=== PATIENT | female | born 1940 | race Caucasian/White ===

== ENCOUNTER 2020-05-16 11:01 | Outpatient (REF) | payer OTHER, SELFPAY ==
--- NOTE | 2020-05-16 11:13 | XR_ITS ---
EXAMINATION: BILATERAL KNEE X-RAY CLINICAL INFORMATION: Bilateral knee pain COMPARISON: None TECHNIQUE: 4 views of each kidney FINDINGS: Right: Bone alignment is normal. No fracture or dislocation is seen. The femoral tibial joints are normal. There is mild arthritis at the patellofemoral joint with joint space narrowing and osteophyte formation. There is no significant joint effusion. There is atherosclerotic disease. Left: Bone alignment is normal. No fracture or dislocation is seen. There is arthritis at the patellofemoral and medial femoral tibial joints with joint space narrowing and osteophyte formation. There is no significant joint effusion. There is evidence of atherosclerotic disease. XR/XR knee LT 4V IMPRESSION: Bilateral arthritis.
--- NOTE | 2020-05-16 11:14 | XR_ITS ---
EXAMINATION: BILATERAL KNEE X-RAY CLINICAL INFORMATION: Bilateral knee pain COMPARISON: None TECHNIQUE: 4 views of each kidney FINDINGS: Right: Bone alignment is normal. No fracture or dislocation is seen. The femoral tibial joints are normal. There is mild arthritis at the patellofemoral joint with joint space narrowing and osteophyte formation. There is no significant joint effusion. There is atherosclerotic disease. Left: Bone alignment is normal. No fracture or dislocation is seen. There is arthritis at the patellofemoral and medial femoral tibial joints with joint space narrowing and osteophyte formation. There is no significant joint effusion. There is evidence of atherosclerotic disease. XR/XR knee RT 4V IMPRESSION: Bilateral arthritis.
== END 2020-05-16 11:02 | disposition home or self-care (01) ==
LOC: HO.XRAY 11:01
PROVIDERS: PCP Internal Medicine; Visit Provider Internal Medicine
DX: M25.562 Pain in left knee (principal); M25.561 Pain in right knee
CPT/HCPCS: 73564

== ENCOUNTER 2021-03-03 08:28 | Outpatient (REF) | payer OTHER, SELFPAY ==
[2021-03-03 09:05] LABS: MANUAL DIFF FLAG NO
[2021-03-03 09:13] LABS: Basophils Percent Auto 0.6 % (0-2); Eosinophils Absolute Auto 0.2 X10*3/uL (0.0-0.4); Eosinophils Percent Auto 2.7 % (0-4); Hematocrit 47.1 % (37-47); Imm Gran Abs Auto 0.02 X10*3/uL (0.00-0.03); Imm Gran Pct Auto 0.3 % (0.0-0.4); Lymphocytes Absolute Auto 1.9 X10*3/uL (1.2-4.9); Mean Corpuscular HGB Conc 31.8 g/dl (31.0-35.0); Mean Corpuscular Hemoglobin 29.8 pg (27.0-33.0); Mean Corpuscular Volume 93.5 fL (80-98); Mean Platelet Volume 12.3 fL (9.4-12.3); Monocytes Absolute Auto 0.7 X10*3/uL (0.1-1.2); Monocytes Percent Auto 10.4 % (2-11); Neutrophils Absolute Auto 3.8 X10*3/uL (2.0-8.3); Platelet Count 157 X10*3/uL (160-400); Red Blood Count 5.04 X10*6/uL (4.20-5.50); Red Cell Distribution Width 15.9 % (11.0-16.0); White Blood Count 6.6 X10*3/uL (4.8-10.8)
[2021-03-03 10:22] LABS: Free T4 (Free Thyroxine) 1.07 ng/dL (0.71-1.85); Thyroid Stimulating Hormone 1.05 uIU/mL (0.32-4.0)
[2021-03-03 10:26] LABS: Alanine Aminotransferase 27 U/L (0-31); Albumin Level 4.1 g/dL (3.5-5.0); Alkaline Phosphatase 60 U/L (39-117); Anion Gap 11 (12-20); Aspartate Amino Transferase 30 U/L (5-31); Bilirubin Total 0.5 mg/dL (0.0-1.0); Blood Urea Nitrogen 22 mg/dL (9-16); Calcium 9.6 mg/dL (8.4-10.2); Carbon Dioxide 29 mmol/L (22-29); Chloride 107 mmol/L (96-108); Cholesterol 179 mg/dL; Estimated Glomerular Filt Rate 57; Glucose Fasting 100 mg/dL (60-99); HDL Cholesterol 62 mg/dL; LDL Cholesterol Calculated 102 mg/dl; Potassium 4.5 mmol/L (3.3-5.1); Sodium 142 mmol/L (135-145); Total Protein 6.5 g/dL (6.5-8.0); Triglycerides 77 mg/dL
== END 2021-03-03 08:29 | disposition home or self-care (01) ==
LOC: HO.LAB 08:28
PROVIDERS: PCP Internal Medicine; Visit Provider Internal Medicine
DX: R53.83 Other fatigue (principal); E78.5 Hyperlipidemia, unspecified
CPT/HCPCS: 36415; 80053; 80061; 84439; 84443; 85025

== ENCOUNTER 2022-01-21 08:23 | Outpatient (REF) | payer OTHER, SELFPAY ==
[2022-01-21 08:48] LABS: COVID-19 Test Positive (Negative); IDNOW Serial# 16C4AD1C
== END 2022-01-21 08:24 | disposition home or self-care (01) ==
LOC: HO.LAB 08:23
PROVIDERS: Visit Provider Internal Medicine
DX: Z20.822 Contact with and (suspected) exposure to COVID-19 (principal)
CPT/HCPCS: 87635; C9803

== ENCOUNTER 2022-02-23 08:13 | Outpatient (REF) | payer OTHER, SELFPAY ==
[2022-02-23 08:30] LABS: MANUAL DIFF FLAG NO
[2022-02-23 08:45] LABS: Basophils Absolute Auto 0.1 X10*3/uL (0.0-0.2); Basophils Percent Auto 1.2 % (0-2); Eosinophils Absolute Auto 0.1 X10*3/uL (0.0-0.4); Eosinophils Percent Auto 2.4 % (0-4); Hematocrit 47.1 % (37.0-47.0); Hemoglobin 15.2 g/dl (12.0-16.0); Imm Gran Abs Auto 0.02 X10*3/uL (0.00-0.03); Imm Gran Pct Auto 0.3 % (0.0-0.4); Lymphocytes Absolute Auto 1.7 X10*3/uL (1.2-4.9); Lymphocytes Percent Auto 29.2 % (20-40); Mean Corpuscular HGB Conc 32.3 g/dl (31.0-35.0); Mean Corpuscular Hemoglobin 29.5 pg (27.0-33.0); Mean Corpuscular Volume 91.5 fL (80.0-98.0); Mean Platelet Volume 11.5 fL (9.4-12.3); Monocytes Absolute Auto 0.6 X10*3/uL (0.1-1.2); Monocytes Percent Auto 9.7 % (2-11); Neutrophils Absolute Auto 3.3 x10*3/uL (2.0-8.3); Neutrophils Percent Auto 57.2 % (45-73); Platelet Count 172 X10*3/uL (160-400); Red Blood Count 5.15 X10*6/uL (4.20-5.50); Red Cell Distribution Width 16.1 % (11.0-16.0); White Blood Count 5.9 X10*3/uL (4.8-10.8)
[2022-02-23 09:15] LABS: Alanine Aminotransferase 29 U/L (0-31); Albumin Level 3.9 g/dL (3.5-5.0); Alkaline Phosphatase 59 U/L (39-117); Anion Gap 14 (12-20); Aspartate Amino Transferase 32 U/L (5-31); Bilirubin Total 0.6 mg/dL (0.0-1.0); Blood Urea Nitrogen 28 mg/dL (9-16); Calcium 9.4 mg/dL (8.4-10.2); Carbon Dioxide 26 mmol/L (22-29); Chloride 107 mmol/L (96-108); Cholesterol 191 mg/dL; Estimated Glomerular Filt Rate 52; Glucose Random 103 mg/dL (60-115); HDL Cholesterol 52 mg/dL; LDL Cholesterol Calculated 123 mg/dl; Potassium 4.5 mmol/L (3.3-5.1); Sodium 142 mmol/L (135-145); Total Protein 6.7 g/dL (6.5-8.0); Triglycerides 84 mg/dL
[2022-02-23 09:39] LABS: Free T4 (Free Thyroxine) 1.09 ng/dL (0.71-1.85); Thyroid Stimulating Hormone 1.01 uIU/mL (0.32-4.0)
== END 2022-02-23 08:14 | disposition home or self-care (01) ==
LOC: HO.LAB 08:13
PROVIDERS: PCP Internal Medicine; Visit Provider Internal Medicine
DX: R53.83 Other fatigue (principal); E78.00 Pure hypercholesterolemia, unspecified
CPT/HCPCS: 36415; 80053; 80061; 84439; 84443; 85025

== ENCOUNTER 2022-05-27 11:39 | Outpatient (REF) | payer OTHER, SELFPAY ==
[2022-05-27 12:36] LABS: COVID-19 Test Negative (Negative); IDNOW Serial# 16C4AD1C
== END 2022-05-27 11:40 | disposition home or self-care (01) ==
LOC: HO.LAB 11:39
PROVIDERS: Visit Provider Internal Medicine
DX: Z20.822 Contact with and (suspected) exposure to COVID-19 (principal)
CPT/HCPCS: 87635; C9803

== ENCOUNTER 2022-11-05 14:48 | Outpatient (REF) | payer OTHER, SELFPAY ==
--- NOTE | ~2022-11-05 | XR_ITS ---
EXAMINATION: XR KNEE AP STANDING CLINICAL INFORMATION: Bilateral knee pain. COMPARISON: Previous x-ray most recent May 2020 TECHNIQUE: AP and lateral bilateral standing view of the knees was obtained. FINDINGS: Right: Bone alignment is normal. No fracture or dislocation. Tricompartment arthritis. Small joint effusion. Atherosclerotic disease. The arthritis appears increased from May 2020. Left: Bone alignment is normal. No fracture or dislocation. Tricompartment arthritis. Small joint effusion. Atherosclerotic disease. Arthritis appears increased from 2019 exam.. XR/XR knee standing BI IMPRESSION: Bilateral arthritis increased from 2019 exam.
== END 2022-11-05 14:49 | disposition home or self-care (01) ==
LOC: HO.HMGCX 14:48
PROVIDERS: PCP Internal Medicine; Visit Provider Internal Medicine
DX: M25.562 Pain in left knee (principal); M25.561 Pain in right knee
CPT/HCPCS: 73565

== ENCOUNTER 2023-01-28 09:59 | Outpatient (AMB) | payer OTHER, SELFPAY ==
--- NOTE | 2023-01-28 10:03 | A.OFFVIS_ITS ---
Intake Intake Visit Reasons: BP-B/L knee pain/Right knee worse Intake Note: Leyda is a 82 year old female who presents today as a new patient with complaints of bilateral knee pain. Right worse than left. She also complains of right ankle. Hx of cortisone injection at the beginning of November 2022 with PCP. The patient states that she got minimal relief from the injection. She has taken Tylenol which gives her good relief. She is not able to tolerate anti- inflammatory medicines because of renal problems. She has taken CBD supplements as well. The patient denies any locking or giving way. She would like to hold off on surgery for as long as possible. Allergies NSAIDS (Non-Steroidal Anti-Inflamma Adverse Reaction (Verified 01/28/23 10:08) Kindey Function Elevated Medication List - Last Reconciled 01/28/23 by Arnulfo Anderson MD acetaminophen ER (Tylenol Arthritis Pain) 650 mg PO Q12H [CBD Tincture sublingual] lorazepam 0.5 mg PO TID PRN simvastatin 40 mg PO BEDTIME PFSH Surgical History (Updated 01/28/23 @ 10:09 by Zora Melendez CMA) H/O mastectomy Social History (Updated 01/28/23 @ 10:10 by Zora Melendez CMA) Current occupational status: employed Current occupation: [employer] Physical Exam Const Other: Well-nourished well-developed very friendly female awake alert and oriented x3 in no acute distress Extrem Other: Bilateral lower extremity examination shows good capillary refill, no skin lesions noted, normal sensation light touch Right knee examination shows a mild effusion, palpable crepitus with range of motion, pain with range of motion, range of motion from -5 degrees to 115 degrees, no instability Results Reviewed Results Reviewed: X-rays of the patient's right knee taken on 11/05/2022 show severe joint space narrowing with grade 4 [id number] arthritis, subchondral sclerosis, no acute Assessment & Plan Assessment & Plan (1) Arthritis of right knee: Code(s): M17.11 - Unilateral primary osteoarthritis, right knee Plan: Ms. Ignacio presents with progressively worsening bilateral knee pains, right greater than left, due to degenerative joint disease. I had a lengthy discussion with the patient regarding the treatment options. She wishes to hold off on surgery for as long as possible. I agree with this plan. She has not gotten good relief from cortisone injections. Thus, I will see whether not her insurance company will cover a viscosupplementation injection. I will see her back once the injection is available. Feel free to call me at any time should questions regarding her orthopedic management arise. Thank you very much for asking me to see this very friendly patient. Well-nourished well-developed very friendly female awake alert and oriented x3 in no acute distress Coding Level of Care Code New Pt Level 2 (80370) Diagnoses Arthritis of right knee M17.11
== END 2023-01-28 10:38 | disposition home or self-care (01) ==
PROVIDERS: PCP Internal Medicine; Visit Provider Orthopaedic Surgery
DX: M17.11 Unilateral primary osteoarthritis, right knee (principal)
CPT/HCPCS: 99202

== ENCOUNTER → 2023-01-28 09:59 | Outpatient (BNVA) | payer OTHER, SELFPAY | PROVIDERS: PCP Internal Medicine; Visit Provider Orthopaedic Surgery ==

== ENCOUNTER 2023-03-06 11:05 | Outpatient (AMB) | payer OTHER, SELFPAY ==
--- NOTE | 2023-03-06 11:10 | MHC.OFFVIS ---
Intake Intake Visit Reasons: OV- B/L Knee req INJ Intake Note: Pt presents to the office today for an office visit for b/l knee pain. Pt states her right knee is the worst but her left knee is painful occasionally as well.Pt states she has worse pain at night time. She states her knee is more painful when extended. Pt states she believes the arthritis strength tylenol is helpful.Pt denies any previous injections or surgeries. The patient wishes to hold off on surgery if at all possible. Allergies NSAIDS (Non-Steroidal Anti-Inflamma Adverse Reaction (Verified 03/06/23 11:11) Kindey Function Elevated Medication List - Last Reconciled 03/06/23 by Arnulfo Anderson MD acetaminophen ER (Tylenol Arthritis Pain) 650 mg PO Q12H [CBD Tincture sublingual] lorazepam 0.5 mg PO TID PRN simvastatin 40 mg PO BEDTIME PFSH Surgical History H/O mastectomy Family History (Updated 03/06/23 @ 11:14 by Renetta Chawla MA) Mother Ovarian cancer Father Heart problem Paternal Grandmother Diabetes Social History (Updated 03/06/23 @ 11:12 by Renetta Chawla MA) Household Members: None Housing: House Alcohol intake: never Patient Tobacco Use Status: Current everyday Tobacco user Cigarettes Per Day: 8 Current occupational status: employed Current occupation: [employer] Physical Exam Const Other: Well-nourished well-developed very friendly female awake alert and oriented x3 in no acute distress Extrem Other: Bilateral lower extremity examination shows good capillary refill, no skin lesions noted, normal sensation light touch Right knee examination shows a mild effusion, palpable crepitus with range of motion, pain with range of motion, no instability Office Procedures Joint Injection/Drain Joint Injection/Drain Primary Site: right knee Prep: site was prepped using aseptic technique Injected: 40 mg of, Kenalog and 1% plain lidocaine Procedure: The patient tolerated the procedure well Coding 11898 - Large joint Procedure code (CPT) selection complete Results Reviewed Results Reviewed: 03/06/23 11:48 Lidocaine HCl 2 % MPF [Xylocaine 2 % MPF] 5 ml .ROUTE .STK-MED ONE Triamcinolone Acetonide [Kenalog-40] 40 mg .ROUTE .STK-MED ONE X-rays of the patient's right knee show joint space narrowing, subchondral sclerosis, no acute bony abnormalities Assessment & Plan Assessment & Plan (1) Arthritis of right knee: Code(s): M17.11 - Unilateral primary osteoarthritis, right knee Plan: Ms. Ignacio presents with progressively worsening bilateral knee pains, right greater than left, due to degenerative joint disease. I had a lengthy discussion with the patient regarding the treatment options. The risks and benefits of a right knee cortisone injection were discussed at length with the patient. The patient wished to proceed. She tolerated the injection well. She will continue with her home exercise program. She will follow up with me on an as-needed basis should her symptoms not plateau at an unacceptable level over the next few months. Feel free to call me at any time should questions regarding her orthopedic management arise. I spent 22 minutes in reviewing the patient's records and imaging studies, seeing the patient and documenting in the medical record. Orders: Orders AMB Joint Injection/Aspiration Today M17.11 - Unilateral primary osteoarthritis, right knee Coding Level of Care Code Est Pt Level 2 (11131) Diagnoses Arthritis of right knee M17.11 CPT Codes Coding - 88916 Large joint: 52984 - Large joint ([id number])
== END 2023-03-06 12:16 | disposition home or self-care (01) ==
PROVIDERS: PCP Internal Medicine; Visit Provider Orthopaedic Surgery
DX: M17.11 Unilateral primary osteoarthritis, right knee (principal)
CPT/HCPCS: 20610; 99213

== ENCOUNTER → 2023-03-06 11:05 | Outpatient (BNVA) | payer OTHER, SELFPAY | PROVIDERS: PCP Internal Medicine; Visit Provider Orthopaedic Surgery | DX: M17.11 Unilateral primary osteoarthritis, right knee (principal) | CPT/HCPCS: 20610; J3301 ==

== ENCOUNTER 2023-06-05 12:55 | Outpatient (AMB) | payer OTHER, SELFPAY ==
--- NOTE | 2023-06-05 13:03 | A.OFFVIS_ITS ---
Intake Intake Visit Reasons: Right knee pain Intake Note: Ms. Ignacio presents with complaints of progressively worsening right knee pain. The patient describes her pain as sharp in nature. She did have a cortisone injection given into her right knee earlier this year. She got fairly good relief from that injection. She has taken Tylenol which gives her only mild relief. She wishes to hold off on surgery for as long as possible. Allergies NSAIDS (Non-Steroidal Anti-Inflamma Adverse Reaction (Verified 06/05/23 13:03) Kindey Function Elevated Medication List - Last Reconciled 06/05/23 by Arnulfo Anderson MD acetaminophen ER (Tylenol Arthritis Pain) 650 mg PO Q12H [CBD Tincture sublingual] lorazepam 0.5 mg PO TID PRN simvastatin 40 mg PO BEDTIME PFSH Surgical History H/O mastectomy Family History Mother Ovarian cancer Father Heart problem Paternal Grandmother Diabetes Social History (Updated 03/06/23 @ 11:12 by Renetta Chawla MA) Household Members: None Housing: House Alcohol intake: never Patient Tobacco Use Status: Current everyday Tobacco user Cigarettes Per Day: 8 Current occupational status: employed Current occupation: [employer] Physical Exam Const Other: Well-nourished well-developed very friendly female awake alert and oriented x3 in no acute distress Extrem Other: Bilateral lower extremity examination shows good capillary refill, no skin lesions noted, normal sensation light touch Right knee examination shows a minimal effusion, palpable crepitus with range of motion, pain with range of motion, range of motion from -3 degrees to 115 degrees Office Procedures Joint Injection/Drain Joint Injection/Drain Primary Site: right knee Prep: site was prepped using aseptic technique Injected: 40 mg of, DepoMedrol and 1% plain lidocaine Procedure: The patient tolerated the procedure well Coding 41647 - Large joint Procedure code (CPT) selection complete Results Reviewed Results Reviewed: X-rays of the patient's right knee show joint space narrowing, subchondral scle rosis, no acute bony abnormalities Assessment & Plan Assessment & Plan (1) Arthritis of right knee: Code(s): M17.11 - Unilateral primary osteoarthritis, right knee (2) Right knee pain: Code(s): M25.561 - Pain in right knee Plan Ms. Ignacio presents with progressively worsening right knee pain due to degenerative joint disease. I had a lengthy discussion with the patient regarding the treatment options. She wishes to hold off on surgery for as long as possible. I agree with this plan. The risks and benefits of a right knee cortisone injection were discussed at length with the patient. The patient wished to proceed. She tolerated the injection well. She will continue with her home exercise program. She will follow up with me on an as-needed basis should her symptoms not plateau at an unacceptable level over the next few months. Feel free to call me at any time should questions regarding her orthopedic management arise. I spent 22 minutes in reviewing the patient's records and imaging studies, seeing the patient and documenting in the medical record. Orders: Orders AMB Joint Injection/Aspiration 06/05/23 M17.11 - Unilateral primary osteoarthritis, right knee Coding Level of Care Code Est Pt Level 2 (45707) Diagnoses Arthritis of right knee M17.11 Right knee pain M25.561 CPT Codes Coding - 55658 Large joint: 56732 - Large joint ([id number])
== END 2023-06-05 13:35 | disposition home or self-care (01) ==
PROVIDERS: PCP Internal Medicine; Visit Provider Orthopaedic Surgery
DX: M17.11 Unilateral primary osteoarthritis, right knee (principal)
CPT/HCPCS: 20610; 99213

== ENCOUNTER → 2023-06-05 12:55 | Outpatient (BNVA) | payer OTHER, SELFPAY | PROVIDERS: PCP Internal Medicine; Visit Provider Orthopaedic Surgery | DX: M17.11 Unilateral primary osteoarthritis, right knee (principal); M25.561 Pain in right knee | CPT/HCPCS: 20610; J1020 ==

== ENCOUNTER 2023-09-04 12:50 | Outpatient (AMB) | payer OTHER, SELFPAY ==
--- NOTE | 2023-09-04 13:17 | A.OFFVIS_ITS ---
Intake Intake Visit Reasons: OV- B/L Knee req INJ 06/05/23 Intake Note: Leyda is a 82 year old female who presents with bilateral knee pain. He states her pain is worse on the Right . She states she had a Right knee injection on 06/05/2023 and it gave her good relief. She is also using CBD products for her pain. Today she would like to have her Right knee injected again. She has done physical therapy exercises which aggravated her pain. She has also tried Tylenol which gave her minimal relief. She is not able to tolerate anti- inflammatory medicines. She has not tried tramadol. Allergies NSAIDS (Non-Steroidal Anti-Inflamma Adverse Reaction (Verified 09/04/23 13:25) Kindey Function Elevated Medication List - Last Reconciled 09/05/23 by Arnulfo Anderson MD acetaminophen ER (Tylenol Arthritis Pain) 650 mg PO Q12H [CBD Tincture sublingual] lorazepam 0.5 mg PO TID PRN simvastatin 40 mg PO BEDTIME tramadol 50 mg PO Q12H PRN PFSH Surgical History H/O mastectomy Family History Mother Ovarian cancer Father Heart problem Paternal Grandmother Diabetes Social History Household Members: None Housing: House Alcohol intake: never Patient Tobacco Use Status: Current everyday Tobacco user Cigarettes Per Day: 8 Current occupational status: employed Current occupation: [employer] Physical Exam Const Other: Well-nourished well-developed very friendly female awake alert and oriented x3 in no acute distress Extrem Other: Bilateral lower extremity examination shows good capillary refill, no skin lesions noted, normal sensation light touch Right knee examination shows a minimal effusion, palpable crepitus with range of motion, pain with range of motion, no instability Office Procedures Joint Injection/Drain Joint Injection/Drain Primary Site: right knee Prep: site was prepped using aseptic technique Injected: 40 mg of, DepoMedrol and 1% plain lidocaine Procedure: The patient tolerated the procedure well Coding 92239 - Large joint Procedure code (CPT) selection complete Results Reviewed Results Reviewed: X-rays of the patient's right knee show joint space narrowing, subchondral sclerosis, no acute bony abnormalities Assessment & Plan Assessment & Plan (1) Arthritis of right knee: Code(s): M17.11 - Unilateral primary osteoarthritis, right knee Plan Ms. Ignacio presents with right knee pain due to degenerative joint disease. I had a lengthy discussion with the patient regarding the treatment options. She wishes to hold off on surgery for as long as possible. I agree with this plan. The risks and benefits of a right knee cortisone injection were discussed at [facility] with the patient. The patient wished to proceed. She tolerated the injection well. She will continue with her home exercise program. I did give her a prescription for tramadol to help with her discomfort. She will follow up with me on an as-needed basis should her symptoms not plateau at an unacceptable level over the next few months. Feel free to call me at any time should questions regarding her orthopedic management arise. I spent 22 minutes in reviewing the patient's records and imaging studies, seeing the patient and documenting in the medical record. Orders: Orders AMB Joint Injection/Aspiration 09/04/23 M17.11 - Unilateral primary osteoarthritis, right knee Medications: New tramadol 50 mg PO Q12H PRN 60 tabs 0RF pain Coding Level of Care Code Est Pt Level 2 (25026) Diagnoses Arthritis of right knee M17.11 CPT Codes Coding - 01306 Large joint: 65577 - Large joint ([id number])
== END 2023-09-04 13:55 | disposition home or self-care (01) ==
PROVIDERS: PCP Internal Medicine; Visit Provider Orthopaedic Surgery
DX: M17.11 Unilateral primary osteoarthritis, right knee (principal); M25.562 Pain in left knee
CPT/HCPCS: 20610; 99213

== ENCOUNTER → 2023-09-04 12:50 | Outpatient (BNVA) | payer OTHER, SELFPAY | PROVIDERS: PCP Internal Medicine; Visit Provider Orthopaedic Surgery | DX: M17.11 Unilateral primary osteoarthritis, right knee (principal) | CPT/HCPCS: 20610; J1020 ==

== ENCOUNTER 2023-11-07 10:53 | Outpatient (REF) | payer OTHER, SELFPAY ==
--- NOTE | ~2023-11-07 | XR_ITS ---
EXAMINATION: XR CERVICAL SPINE CLINICAL INFORMATION: Neck pain COMPARISON: None available. TECHNIQUE: 6 views of the cervical spine, inclusive of flexion and extension views, were obtained. FINDINGS: The prevertebral soft tissues are normal. There is advanced disc space narrowing at C5-C6. No fracture or destructive process. There is slight encroachment on the right and left C5-C6 neural foramen on the basis of spurring. There is atherosclerotic calcification in the right and left common carotid bulbs. The lateral masses of C1 and odontoid appear intact. XR/XR cervical spine 5V IMPRESSION: Degenerative change noted. No acute abnormalities.
== END 2023-11-07 10:54 | disposition home or self-care (01) ==
LOC: HO.XRAY 10:53
PROVIDERS: PCP Internal Medicine; Visit Provider Internal Medicine
DX: M54.2 Cervicalgia (principal)
CPT/HCPCS: 72050

== ENCOUNTER 2023-11-12 13:31 | Outpatient (REF) | payer OTHER, SELFPAY ==
[2023-11-12 13:43] LABS: MANUAL DIFF FLAG NO
[2023-11-12 14:17] LABS: Basophils Absolute Auto 0.1 X10*3/uL (0.0-0.2); Basophils Percent Auto 0.8 % (0-2); Eosinophils Absolute Auto 0.1 X10*3/uL (0.0-0.4); Eosinophils Percent Auto 0.8 % (0-4); Hematocrit 45.6 % (37.0-47.0); Hemoglobin 14.6 g/dl (12.0-16.0); Imm Gran Abs Auto 0.02 X10*3/uL (0.00-0.03); Imm Gran Pct Auto 0.2 % (0.0-0.4); Lymphocytes Absolute Auto 1.8 X10*3/uL (1.2-4.9); Lymphocytes Percent Auto 20.1 % (20-40); Mean Corpuscular Hemoglobin 29.8 pg (27.0-33.0); Mean Corpuscular Volume 93.1 fL (80.0-98.0); Monocytes Absolute Auto 0.7 X10*3/uL (0.1-1.2); Monocytes Percent Auto 8.2 % (2-11); Neutrophils Absolute Auto 6.2 x10*3/uL (2.0-8.3); Neutrophils Percent Auto 69.9 % (45-73); Platelet Count 205 X10*3/uL (160-400); Red Cell Distribution Width 14.8 % (11.0-16.0); White Blood Count 8.9 X10*3/uL (4.8-10.8)
[2023-11-12 15:24] LABS: Alanine Aminotransferase 19 U/L (0-31); Albumin Level 4.1 g/dL (3.5-5.0); Alkaline Phosphatase 122 U/L (39-117); Anion Gap 15 (12-20); Aspartate Amino Transferase 28 U/L (5-31); Bilirubin Total 0.4 mg/dL (0.0-1.0); Blood Urea Nitrogen 22 mg/dL (9-16); Calcium 10.3 mg/dL (8.4-10.2); Carbon Dioxide 25 mmol/L (22-29); Chloride 107 mmol/L (96-108); Estimated Glomerular Filt Rate 54; Glucose Random 99 mg/dL (60-115); Potassium 4.3 mmol/L (3.3-5.1); Sodium 143 mmol/L (135-145); Total Protein 7.7 g/dL (6.5-8.0)
[2023-11-12 15:27] LABS: Free T4 (Free Thyroxine) 1.11 ng/dL (0.71-1.85); Thyroid Stimulating Hormone 0.46 uIU/mL (0.32-4.0)
== END 2023-11-12 13:32 | disposition home or self-care (01) ==
LOC: HO.LAB 13:31
PROVIDERS: PCP Internal Medicine; Visit Provider Internal Medicine
DX: E03.9 Hypothyroidism, unspecified (principal); R53.83 Other fatigue
CPT/HCPCS: 36415; 80053; 84439; 84443; 85025

== ENCOUNTER 2023-12-04 13:20 | Outpatient (AMB) | payer OTHER, SELFPAY ==
--- NOTE | 2023-12-04 13:32 | MHC.OFFVIS ---
Intake Visit Reasons: Bilateral knee pain Intake Note: Leyda is a 83 year old female who presents today with complaints of bilateral knee pains. She describes her pains as sharp in nature. Her pains have gotten worse over the last 6 months. She has tried Tylenol which gives only mild relief. She has not able to tolerate anti-inflammatory medicines. She wishes to hold off on surgery for as long as possible. Allergies NSAIDS (Non-Steroidal Anti-Inflamma Adverse Reaction (Verified 12/04/23 13:32) Kindey Function Elevated Medication List - Last Reconciled 12/05/23 by Arnulfo Anderson MD acetaminophen ER (Tylenol Arthritis Pain) 650 mg PO Q12H [CBD Tincture sublingual] simvastatin 40 mg PO BEDTIME tramadol 50 mg PO Q12H PRN PFSH Surgical History H/O mastectomy Family History Mother Ovarian cancer Father Heart problem Paternal Grandmother Diabetes Social History Household Members: None Housing: House Alcohol intake: never Patient Tobacco Use Status: Current everyday Tobacco user Cigarettes Per Day: 8 Current occupational status: employed Current occupation: [employer] Physical Exam Const Other: Well-nourished well-developed very friendly female awake alert and oriented x3 in no acute distress Extrem Other: Bilateral lower extremity examination shows good capillary refill, no skin lesions noted, normal sensation light touch Bilateral knee examination shows minimal effusions, palpable crepitus with range of motion, pain with range of motion, no instability Office Procedures Joint Injection/Drain Joint Injection/Drain Primary Site: left knee Prep: site was prepped using aseptic technique Injected: 40 mg of, DepoMedrol and 1% plain lidocaine Procedure: The patient tolerated the procedure well Coding 04963 - Large joint Procedure code (CPT) selection complete Joint Injection/Drain Joint Injection/Drain Primary Site: right knee Prep: site was prepped using aseptic technique Injected: 40 mg of, DepoMedrol and 1% plain lidocaine Procedure: The patient tolerated the procedure well Coding 15313 - Large joint Procedure code (CPT) selection complete Results Reviewed Results Reviewed: X-rays of the patient's bilateral knee show joint space narrowing, subchondral sclerosis, no acute bony abnormalities Assessment & Plan Assessment & Plan (1) Arthritis of left knee: Code(s): M17.12 - Unilateral primary osteoarthritis, left knee Category: Medical (2) Arthritis of right knee: Code(s): M17.11 - Unilateral primary osteoarthritis, right knee Category: Medical (3) Pain in both knees: Code(s): M25.561 - Pain in right knee; M25.562 - Pain in left knee Plan Ms. Ignacio presents with bilateral knee pains due to degenerative joint disease. I had a lengthy discussion with the patient regarding the treatment options. She wishes to hold off on surgery for as long as possible. I agree with this plan. The risks and benefits of bilateral knee cortisone injections were discussed at length with the patient. The patient wished to proceed. She tolerated the injections well. She will continue with her home exercise program. She will follow up with me on an as-needed basis should her symptoms not plateau at an unacceptable level over the next few months. Feel free to call me at any time should questions regarding her orthopedic management arise. I spent 22 minutes in reviewing the patient's records and imaging studies, seeing the patient and documenting in the medical record. Orders: Orders AMB Joint Injection/Aspiration 12/04/23 M17.12 - Unilateral primary osteoarthritis, left knee AMB Joint Injection/Aspiration 12/04/23 M17.11 - Unilateral primary osteoarthritis, right knee Coding Level of Care Code Est Pt Level 3 (14070) Diagnoses Arthritis of left knee M17.12 Arthritis of right knee M17.11 Pain in both knees M25.561; M25.562 CPT Codes Coding - 74111 Large joint: 17490 - Large joint ([id number]) Coding - 51566 Large joint: 37327 - Large joint ([id number])
== END 2023-12-04 14:11 | disposition home or self-care (01) ==
PROVIDERS: PCP Internal Medicine; Visit Provider Orthopaedic Surgery
DX: M17.0 Bilateral primary osteoarthritis of knee (principal)
CPT/HCPCS: 20610; 99213

== ENCOUNTER → 2023-12-04 13:20 | Outpatient (BNVA) | payer OTHER, SELFPAY | PROVIDERS: PCP Internal Medicine; Visit Provider Orthopaedic Surgery | DX: M17.0 Bilateral primary osteoarthritis of knee (principal) | CPT/HCPCS: 20610; J1010 ==

== ENCOUNTER 2024-01-05 10:00 | Outpatient (RCR) | payer OTHER, SELFPAY | END 2024-01-05 16:43 | disposition home or self-care (01) | LOC: HO.PT 10:00 | PROVIDERS: PCP Internal Medicine; Visit Provider Internal Medicine | DX: M54.2 Cervicalgia (principal) | CPT/HCPCS: 97110; 97140; 97161 ==

== ENCOUNTER 2024-02-21 09:27 | Outpatient (REF) | payer OTHER, SELFPAY ==
--- NOTE | ~2024-02-21 | XR_ITS ---
EXAMINATION: XR CHEST CLINICAL INFORMATION: Fatty, weight loss, evaluation of pneumonia. COMPARISON: None available. TECHNIQUE: 2 views of the chest were obtained. FINDINGS: Normal appearance of the cardiomediastinal silhouette. No focal consolidation, pleural effusion or pneumothorax. No acute osseous findings. Thoracic spondylosis. XR/XR chest 2V IMPRESSION: No acute cardiopulmonary findings. Electronically signed by: Rosa Keith MD 02/24/2024 01:46 PM EDT
[2024-02-21 09:54] LABS: MANUAL DIFF FLAG NO
[2024-02-21 10:09] LABS: Amylase 33 U/L (28-100); Lipase 19 U/L (8-78)
[2024-02-21 10:10] LABS: Rheumatoid Factor 31.3 IU/mL (<15.0)
[2024-02-21 10:18] LABS: Basophils Absolute Auto 0.1 X10*3/uL (0.0-0.2); Basophils Percent Auto 0.6 % (0-2); Eosinophils Absolute Auto 0.1 X10*3/uL (0.0-0.4); Eosinophils Percent Auto 0.4 % (0-4); Hematocrit 38.7 % (37.0-47.0); Hemoglobin 12.5 g/dl (12.0-16.0); Imm Gran Abs Auto 0.12 X10*3/uL (0.00-0.03); Imm Gran Pct Auto 0.9 % (0.0-0.4); Lymphocytes Absolute Auto 1.7 X10*3/uL (1.2-4.9); Lymphocytes Percent Auto 12.9 % (20-40); Mean Corpuscular HGB Conc 32.3 g/dl (31.0-35.0); Mean Corpuscular Hemoglobin 29.6 pg (27.0-33.0); Mean Corpuscular Volume 91.7 fL (80.0-98.0); Mean Platelet Volume 12.3 fL (9.4-12.3); Monocytes Absolute Auto 1.2 X10*3/uL (0.1-1.2); Monocytes Percent Auto 9.2 % (2-11); Neutrophils Absolute Auto 9.8 x10*3/uL (2.0-8.3); Platelet Count 237 X10*3/uL (160-400); Red Blood Count 4.22 X10*6/uL (4.20-5.50); Red Cell Distribution Width 15.9 % (11.0-16.0); White Blood Count 12.9 X10*3/uL (4.8-10.8)
[2024-02-21 11:10] LABS: Appearance Urine Clear; Color Urine Yellow; Glucose Urine UA Negative (Negative); Leukocyte Esterase Urine Trace (Negative); Nitrite Urine Negative (Negative); UMIC TRIGGER UACC YES; Urine Blood Negative (Negative); Urine Ketones Negative (Negative); Urine Protein Negative (Neg-Trace)
[2024-02-21 11:24] LABS: WBC Urine 0-5 /HPF (0-5)
[2024-02-21 11:25] LABS: Bacteria Urine None Seen (None Seen); Hyaline Casts Urine 0-2 /LPF (0-2); RBC Urine 0-2 /HPF (0-2); Squamous Epithelial Cell Urine 0-2 /HPF (0-2)
[2024-02-26 08:19] LABS: Anti Nuclear Antibody Screen POSITIVE (NEGATIVE); Anti Nuclear Antibody Titer 1:40 titer
[2024-02-26 16:39] LABS: Adrenocorticotropic Hormone 19 pg/mL (6-50)
== END 2024-02-21 09:28 | disposition home or self-care (01) ==
LOC: HO.XRAY 09:27
PROVIDERS: PCP Internal Medicine; Visit Provider Internal Medicine
DX: R53.83 Other fatigue (principal); R63.4 Abnormal weight loss; D72.829 Elevated white blood cell count, unspecified; R63.0 Anorexia
CPT/HCPCS: 36415; 71046; 81001; 82024; 82150; 83690; 85025; 86038; 86039; 86431; 87086

== ENCOUNTER 2024-02-26 10:30 | Emergency (ER) | payer OTHER, SELFPAY ==
--- NOTE | ~2024-02-26 | CT_ITS ---
EXAMINATION: CT ABDOMEN AND PELVIS WITHOUT CONTRAST CLINICAL INFORMATION: Nausea, weight loss, right lower quadrant pain COMPARISON: None available. TECHNIQUE: Multidetector volumetric imaging was performed from the superior aspect of the liver through the pubic symphysis. Sagittal and coronal reformatted images were obtained on the technologist's workstation. This CT examination was performed using dose optimization techniques as appropriate, variously including the following: *Automated exposure control *Adjustment of mA and/or kV according to patient size (this includes techniques or standardized protocols for targeted exams where dose is matched to indication/reason for exam; i.e. extremities or head) *Use of iterative reconstruction technique DLP: 412 mGy-cm FINDINGS: LUNG BASES: Unremarkable. ABDOMINAL AND PELVIC WALL: Unremarkable. LIVER AND BILIARY TREE: Unremarkable. GALLBLADDER: Unremarkable. PANCREAS: Unremarkable. SPLEEN: Unremarkable. ADRENAL GLANDS: Unremarkable. KIDNEYS AND URETERS: Distal left 2 mm ureteral stone (4:57). No hydronephrosis. GASTROINTESTINAL TRACT: Colonic diverticulosis with no findings of diverticulitis. Appendix is not visualized, however no inflammatory changes are seen in the right lower quadrant. VASCULAR: Aortic and prostatic calcifications. Aneurysmal dilation of the intrarenal abdominal aorta measuring 2.6 x 2.6 cm. LYMPH NODES/PERITONEUM: No lymphadenopathy. FREE FLUID: None. BLADDER: Unremarkable. PELVIC VISCERA: Unremarkable. OSSEOUS STRUCTURES: Degenerative changes of the thoracolumbar spine. CT/CT abdomen pelvis wo IV con IMPRESSION: * Distal left 2 mm ureteral stone. No hydronephrosis. 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 Based on published guidelines in J Am Annie Radiol 2013; 10(10):789-794 and J Vasc Surg. 2018; 67:2-77, the recommendation for an abdominal aorta with diameter 2.6-2.9 cm is follow-up every 5 years if the aorta that meets the criteria for AAA (>1.5 x proximal normal segment; no f/u if < 1.5 x proximal normal segment; no f/u for aorta < 2.6 cm). * Electronically signed by: Payton Simon MD 02/26/2024 10:21 PM EDT
--- NOTE | ~2024-02-26 | CT_ITS ---
EXAMINATION: CT HEAD WITHOUT CONTRAST CLINICAL INFORMATION: Weakness. Unsteady gait. COMPARISON: None available. TECHNIQUE: Contiguous axial imaging was performed from the skull base to vertex without intravenous administration of contrast. This CT examination was performed using dose optimization techniques as appropriate, variously including the following: *Automated exposure control *Adjustment of mA and/or kV according to patient size (this includes techniques or standardized protocols for targeted exams where dose is matched to indication/reason for exam; i.e. extremities or head) *Use of iterative reconstruction technique DLP: 676 mGy-cm FINDINGS: There is no acute intracranial hemorrhage. There is no evidence of acute/subacute cerebral or cerebellar infarction. There is frontoparietal volume loss. There is mild microvascular ischemic change. There is no midline shift. No extra-axial fluid collection. No hydrocephalus. There is an extra axial, soft tissue density lesion along the right paramedian frontal convexity measuring 2.1 x 1.7 cm in the axial plane and 2.2 cm in craniocaudal dimension. The lesion is partially calcified along its superior margin. It is intimately associated with the anterior falx. Findings are consistent with a meningioma. There is minimal mass effect on the adjacent brain parenchyma. The orbits are symmetric and within normal limits. The calvarium is intact. Visualized paranasal sinuses are clear. Mastoid air cells are clear. CT/CT head/brain wo IV con IMPRESSION: No acute intracranial pathology. Frontoparietal volume loss. Mild microvascular ischemic change. There is an extra axial, soft tissue density lesion along the right paramedian frontal convexity measuring 2.1 x 1.7 cm in the axial plane and 2.2 cm in craniocaudal dimension. The lesion is partially calcified along its superior margin. It is intimately associated with the anterior falx. Findings are consistent with a meningioma. There is minimal mass effect on the adjacent brain parenchyma. Electronically signed by: Yuriy Christiansen DO 02/26/2024 08:35 PM EDT
--- NOTE | ~2024-02-26 | XR_ITS ---
EXAMINATION: XR CHEST CLINICAL INFORMATION: Fatigue COMPARISON: Chest radiograph from 02/21/2024 TECHNIQUE: Frontal view of the chest was obtained. FINDINGS: No focal consolidation. No pneumothorax. Trachea is midline. Cardiac mediastinal silhouette is not enlarged. No large pleural effusion. Osseous structures are intact. Soft tissues are unremarkable. XR/XR chest 1V IMPRESSION: No acute cardiopulmonary process. Electronically signed by: Mason Krishna MD 02/26/2024 12:03 PM EDT
[2024-02-26 10:51] VITALS: BP 106/67; PULSE 125; RESP 20; TEMP 36.8; O2SAT 96; BMI 22.7
--- NOTE | 2024-02-26 10:53 | ECG_ITS ---
Test Reason : failure to thrive Blood Pressure : / mmHG Vent. Rate : 117 BPM Atrial Rate : 117 BPM P-R Int : 128 ms QRS Dur : 066 ms QT Int : 296 ms P-R-T Axes : 066 020 031 degrees QTc Int : 412 ms Sinus tachycardia Septal infarct , age undetermined Abnormal ECG No previous ECGs available Referred By: Jaspal Magaña Electronically Signed By:HAYDEE SMITH
--- NOTE | 2024-02-26 10:59 | ED_ITS ---
HPI - General Adult General Chief complaint: General Medical Stated complaint: Failure to thrive Time Seen by Provider: 02/26/24 16:53 Source: patient, RN notes reviewed and old records reviewed Mode of arrival: ambulatory Limitations: no limitations History of Present Illness ED Provider: Guzman SHANKS narrative: 83-year-old female with past medical history significant for remote history of breast cancer, arthritis, and possible autoimmune disease after positive KARLA test last week presents for evaluation of multiple complaints. Patient complains of generalized weakness that she feels started about 4 months ago. She endorses decreased appetite and a 20 lb weight loss in the same time. She denies any abdominal pain, nausea vomiting, she just states that she has no appetite. She reports that she is drinking boost supplements Patient reports that around the time of her symptoms starting she retired from her job. She states she is less active now that she is no longer working. She denies any fevers, chills, cough, shortness of breath, chest pain Denies any headaches She does complain of knee pain and neck pain which she attributes to her arthritis Denies any recent falls Her family states that she has had an unsteady gait that has been worsening No other complaints or concerns at this time Related Data Home Medications ?Medication ?Instructions ?Recorded ?Confirmed CBD Tincture sublingual 01/28/23 12/05/23 acetaminophen 650 mg 650 mg PO Q12H 01/28/23 12/05/23 tablet,extended release (Tylenol Arthritis Pain) simvastatin 40 mg tablet 40 mg PO BEDTIME 01/28/23 12/05/23 Previous Rx's ?Medication ?Instructions ?Recorded tramadol 50 mg tablet 50 mg PO Q12H PRN pain #60 tabs 01/30/24 Allergies Allergy/AdvReac Type Severity Reaction Status Date / Time NSAIDS (Non-Steroidal AdvReac Kindey Verified 02/26/24 10:55 Anti-Inflamma Function Elevated Review of Systems 2 Constitutional: Constitutional: Denies body ache(s), Denies chills, Reports fatigue, Denies fever(s), Reports lethargy, Reports poor appetite, Reports weakness and Reports weight loss ENT: Denies vertigo and Denies dizziness Cardiovascular: Cardiovascular: Denies chest pain and Denies dyspnea Respiratory: Respiratory: Denies cough and Denies dyspnea Gastrointestinal: Gastrointestinal: Denies abdominal pain, Denies nausea and Denies vomiting Genitourinary: Genitourinary: Denies dysuria Musculoskeletal: Musculoskeletal: Denies back pain, Reports arthralgias, Reports joint swelling and Reports limited range of motion Integumentary/Breasts: Skin/Breast: Denies rash Neurologic: Denies vertigo, Denies dizziness and Reports weakness Endocrine: Endocrine: Reports fatigue PMFSH Past Medical History Surgical History H/O mastectomy Family History Family History Mother Ovarian cancer Father Heart problem Paternal Grandmother Diabetes Social History Social History Household Members: None Housing: House Alcohol intake: never Patient Tobacco Use Status: Current everyday Tobacco user Cigarettes Per Day: 8 Smoked in Last 30 Days: Yes Use of substances other than those prescribed or required for medical reasons: No Advance Directives: No Advance Directives Information Provided: Yes Do you have a plan to hurt others: No Plan Current occupational status: employed Current occupation: [employer] Physical Exam ED Vital Signs: Vital Signs - 24 hr 02/26/24 10:51 02/26/24 16:31 02/26/24 16:51 Temperature 98.2 F 98.5 F 98.3 F Pulse Rate 125 H 113 H 104 H Respiratory Rate 20 16 18 Blood Pressure 106/67 103/64 119/60 Pulse Oximetry 96 95 Oxygen Delivery Method Room Air Room Air Room Air 02/26/24 20:10 02/26/24 23:03 02/27/24 00:00 Temperature 98.3 F 98.4 F 98.5 F Pulse Rate 93 88 Respiratory Rate 16 16 16 Blood Pressure 115/69 114/66 Pulse Oximetry 97 96 Oxygen Delivery Method Room Air Room Air BMI result Body Mass Index 22.7 Const General: healthy appearing, comfortable, no acute distress, alert and awake Nutritional Appearance: well nourished Orientation/consciousness: patient oriented x3 HENMT Head: Yes normocephalic and Yes atraumatic Throat: Yes posterior oropharynx normal Eyes Eyelids: Yes eyelids normal Conjunctivae: conjunctivae normal Sclerae: sclerae normal Corneas: corneas normal Pupils: Equal, round and reactive pupils present EOM: EOMs intact bilaterally Neck Neck: Yes full ROM Resp Effort & Inspection: normal respiratory effort, able to speak in complete sentences, no audible wheezes and not labored Auscultation: clear to auscultation bilaterally Cardio Rate: regular rate Rhythm: regular rhythm GI Inspection: No distended Palpation (GI): Soft to palpation, not firm, Tenderness to palpation present (GI) in the RLQ, no guarding and not rigid Auscultation: normoactive bowel sounds Skin General skin exam: no rashes or lesions noted and elasticity normal Neuro General: patient oriented x3 Cranial nerves: Yes CN's II-XII intact bilaterally, Yes Equal, round and reactive pupils present and Yes Bilaterally intact EOM present Cognition (Neuro): normal cognition Extrem Other: Moving all extremities well without any obvious deformities Course Course Course Narrative: RME: RME: done by ESTRADA Magaña. 83-year-old female history of high cholesterol and she states tachycardia presents to ED for loss appetite, fatigue, and general body pain for months. Patient denies any abdominal pain, chest pain, shortness of breath, dizziness, slurred speech, facial droop, or paralysis of extremities. NIH score is 0. Patient patient has lost 20 lb. Neuro exam intact. Physical exam benign. EKG labs ordered. Reevaluation(s) Reevaluation #1: Patient's CT scan does show a frontal lobe meningioma. Discussed with the attending, Dr. Larios, this is not likely to be an acute issue and does not require emergent neurosurgical intervention. There is no surrounding evidence of hemorrhage. CT scan of the abdomen pelvis shows a 2 mm left-sided nonobstructing ureteral stone. There is no evidence of hematuria or evidence of UTI. There was an incidental finding of an aneurysmal dilatation to 2.6 cm, not warranting emergent evaluation either. I had discussed with family who would like the patient to be evaluated for possible VNA services at home if there is no indication for admission. The patient is willing to stay overnight for physical therapy and case management evaluation Time: 22:31 Medications Administered Discontinued Medications Generic Name Dose Route Start Last Admin Trade Name Freq PRN Reason Stop Dose Admin Sodium Chloride 500 mls @ 500 mls/hr 02/26/24 17:45 02/26/24 20:22 Ns IV 02/26/24 18:44 Infused .Q1H OPAL Infusion Ondansetron HCl 4 mg 02/26/24 17:45 02/26/24 19:08 Ondansetron Hcl 4 Mg/2 Ml Vial IVPUSH 02/26/24 17:46 4 mg ONCE ONE Administration Medical Decision Making Medical Decision Making [facility] Narrative: 83-year-old female with past medical history as documented above presents for evaluation of multiple complaints. It is possible that her symptoms are down to failure to thrive. After a long discussion with the family, plan for CT scan of the brain due to generalized weakness and unsteady gait but she has no focal neuro deficits. She denies any abdominal pain but does have tenderness in the right lower quadrant, get a CT scan of the abdomen pelvis. She does have a leukocytosis to 15k, she has not had a recent cortisone injections. A chest x- ray and a urinalysis were also ordered to evaluate for signs of infection, she has no evidence of cellulitis. Her chemistries are without significant abnormality. Differential Diagnosis Differential Diagnoses: The differential diagnosis associated with the presentation includes Failure to thrive UTI Colon cancer Intracranial mass CVA less likely Lab Data [facility] Lab Attestation statement: I reviewed the patient's lab results. Patient does have a leukocytosis as mentioned above, no anemia or left shift. Electrolytes within normal limits. 02/26/24 11:18 02/26/24 11:18 Labs: Lab Results 02/26/24 02/26/24 Range/Units 11:18 17:22 WBC 15.5 H (4.8-10.8) X10*3/uL RBC 4.24 (4.20-5.50) X10*6/uL Hgb 12.6 (12.0-16.0) g/dl Hct 39.0 (37.0-47.0) % MCV 92.0 (80.0-98.0) fL MCH 29.7 (27.0-33.0) pg MCHC 32.3 (31.0-35.0) g/dl RDW 15.9 (11.0-16.0) % Plt Count 229 (160-400) X10*3/uL MPV 11.7 (9.4-12.3) fL Immature Gran % (Auto) 0.6 H (0.0-0.4) % Neut % (Auto) 82.7 H (45-73) % Lymph % (Auto) 8.1 L (20-40) % [place] % (Auto) 8.1 (2-11) % Eos % (Auto) 0.1 (0-4) % Baso % (Auto) 0.4 (0-2) % Lymph # (Auto) 1.3 (1.2-4.9) X10*3/uL [place] # (Auto) 1.3 H (0.1-1.2) X10*3/uL Eos # (Auto) 0.0 (0.0-0.4) X10*3/uL Baso # (Auto) 0.1 (0.0-0.2) X10*3/uL Abs Immat Gran (auto) 0.10 H (0.00-0.03) X10*3/uL Absolute Neuts (auto) 12.8 H (2.0-8.3) x10*3/uL Absolute Nucleated RBC 0.000 (0.0-0.012) X10*3/uL Nucleated RBC % (auto) 0.0 (0.0-0.2) /100WBC PT 11.9 (11.1-13.3) SEC INR 1.0 (0.9-1.1) APTT 31.6 (26.0-36.8) SEC Sodium 139 (135-145) mmol/L Potassium 4.3 (3.3-5.1) mmol/L Chloride 104 (96-108) mmol/L Carbon Dioxide 24 (22-29) mmol/L Anion Gap 15 (12-20) BUN 22 H (9-16) mg/dL Creatinine 0.93 (0.5-1.4) mg/dL Estim Creat Clear Calc 44.5 Estimated GFR 58 Random Glucose 153 H (60-115) mg/dL Calcium 9.6 D (8.4-10.2) mg/dL Magnesium 2.0 (1.6-2.6) mg/dL Total Bilirubin 0.6 (0.0-1.0) mg/dL AST 24 (5-31) U/L ALT 15 (0-31) U/L Alkaline Phosphatase 158 H (39-117) U/L Total Creatine Kinase 33 (26-140) U/L Troponin I High Sens 2.8 (<3.5-17.0) ng/L Total Protein 7.2 (6.5-8.0) g/dL Albumin 3.6 (3.5-5.0) g/dL Lipase 13 (8-78) U/L Urine Color Dark Yellow Urine Appearance Clear Urine pH 6.0 (5.0-9.0) Ur Specific [place] 1.015 (1.005-1.025) Urine Protein 30 (1+) H (Neg-Trace) mg/dL Urine Glucose (UA) Negative (Negative) mg/dL Urine Ketones Trace (Negative) mg/dL Urine Blood Negative (Negative) Urine Nitrite Negative (Negative) Ur Leukocyte Esterase Small (1+) H (Negative) Urine RBC 0-2 (0-2) /HPF Urine WBC 0-5 (0-5) /HPF Ur Squamous Epith Cells 6-10 (0-2) /HPF Urine Bacteria None Seen (None Seen) Hyaline Casts 0-2 (0-2) /LPF Influenza Type A (PCR) NEGATIVE (Negative) Influenza Type B (PCR) NEGATIVE (Negative) RSV RNA Qual (PCR) NEGATIVE (Negative) SARS-CoV-2 RNA (RT-PCR) NEGATIVE (Negative) Radiology Impression Discussion of test interpretation with radiology: I have reviewed the radiologist's reading. Radiologist Impression: CT/CT head/brain wo IV con IMPRESSION: No acute intracranial pathology. Frontoparietal volume loss. Mild microvascular ischemic change. There is an extra axial, soft tissue density lesion along the right paramedian frontal convexity measuring 2.1 x 1.7 cm in the axial plane and 2.2 cm in craniocaudal dimension. The lesion is partially calcified along its superior margin. It is intimately associated with the anterior falx. Findings are consistent with a meningioma. There is minimal mass effect on the adjacent brain parenchyma. CT/CT abdomen pelvis wo IV con IMPRESSION: * Distal left 2 mm ureteral stone. No hydronephrosis. 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 Based on published guidelines in J Am Annie Radiol 2013; 10(10):789-794 and J Vasc Surg. 2018; 67:2-77, the recommendation for an abdominal aorta with diameter 2.6-2.9 cm is follow-up every 5 years if the aorta that meets the criteria for AAA (>1.5 x proximal normal segment; no f/u if < 1.5 x proximal normal segment; no f/u for aorta < 2.6 cm). * Electronically signed by: Payton Simon MD 02/26/2024 10:21 PM EDT RP Discharge Plan Discharge Clinical Impression: Adult failure to thrive, Meningioma Patient Disposition: Still a Patient Instructions: Failure to Thrive in Older Adults (ED), Meningioma (ED) Additional Instructions: Your workup did not show any acute findings. Your brain CT did show a meningioma, this has likely been there for many years. You may talk to your primary doctor about this who may refer you to neurosurgery. Follow-up with Dr. Jama's office for possible endoscopy/colonoscopy Prescriptions: No Action tramadol 50 mg tablet 50 mg PO Q12H PRN (Reason: pain) Qty: 60 1RF simvastatin 40 mg tablet 40 mg PO BEDTIME acetaminophen [Tylenol Arthritis Pain] 650 mg tablet extended release 650 mg PO Q12H CBD Tincture sublingual Referrals: Toby Jama MD [Physician] - (Decreased appetite, 20 lb weight loss) Print Language: Armenian
[2024-02-26 11:24] LABS: MANUAL DIFF FLAG NO
[2024-02-26 11:26] LABS: Basophils Absolute Auto 0.1 X10*3/uL (0.0-0.2); Basophils Percent Auto 0.4 % (0-2); Eosinophils Percent Auto 0.1 % (0-4); Hemoglobin 12.6 g/dl (12.0-16.0); Imm Gran Pct Auto 0.6 % (0.0-0.4); Lymphocytes Absolute Auto 1.3 X10*3/uL (1.2-4.9); Lymphocytes Percent Auto 8.1 % (20-40); Mean Corpuscular HGB Conc 32.3 g/dl (31.0-35.0); Mean Corpuscular Hemoglobin 29.7 pg (27.0-33.0); Mean Platelet Volume 11.7 fL (9.4-12.3); Monocytes Absolute Auto 1.3 X10*3/uL (0.1-1.2); Monocytes Percent Auto 8.1 % (2-11); Neutrophils Absolute Auto 12.8 x10*3/uL (2.0-8.3); Neutrophils Percent Auto 82.7 % (45-73); Platelet Count 229 X10*3/uL (160-400); Red Blood Count 4.24 X10*6/uL (4.20-5.50); Red Cell Distribution Width 15.9 % (11.0-16.0); White Blood Count 15.5 X10*3/uL (4.8-10.8)
[2024-02-26 11:38] LABS: Prothrombin Time 11.9 SEC (11.1-13.3)
[2024-02-26 11:41] LABS: Alanine Aminotransferase 15 U/L (0-31); Albumin Level 3.6 g/dL (3.5-5.0); Alkaline Phosphatase 158 U/L (39-117); Anion Gap 15 (12-20); Aspartate Amino Transferase 24 U/L (5-31); Bilirubin Total 0.6 mg/dL (0.0-1.0); Blood Urea Nitrogen 22 mg/dL (9-16); Calcium 9.6 mg/dL (8.4-10.2); Carbon Dioxide 24 mmol/L (22-29); Chloride 104 mmol/L (96-108); Creatinine Clr Calc Pharmacy 44.5; Estimated Glomerular Filt Rate 58; Glucose Random 153 mg/dL (60-115); Lipase 13 U/L (8-78); Partial Thromboplastin Time 31.6 SEC (26.0-36.8); Potassium 4.3 mmol/L (3.3-5.1); Sodium 139 mmol/L (135-145); Total Protein 7.2 g/dL (6.5-8.0)
[2024-02-26 11:48] LABS: Troponin-I High Sensitivity 2.8 ng/L (<3.5-17.0)
[2024-02-26 12:03] LABS: Influenza A PCR NEGATIVE (Negative); Influenza B PCR NEGATIVE (Negative); Resp Syncy Virus RNA Qual PCR NEGATIVE (Negative); SARS COV2 PCR INHOUSE NEGATIVE (Negative)
[2024-02-26 16:31] VITALS: BP 103/64; PULSE 113; RESP 16; TEMP 36.9
[2024-02-26 16:51] VITALS: BP 119/60; PULSE 104; RESP 18; TEMP 36.8; O2SAT 95
[2024-02-26 17:36] LABS: Appearance Urine Clear; Color Urine Dark Yellow; Glucose Urine UA Negative (Negative); Leukocyte Esterase Urine Small (1+) (Negative); Nitrite Urine Negative (Negative); Specific Gravity - Urine 1.015 (1.005-1.025); UMIC TRIGGER UACC YES; Urine Blood Negative (Negative); Urine Ketones Trace mg/dL (Negative); Urine Protein 30 (1+) mg/dL (Neg-Trace)
[2024-02-26 17:45] LABS: Bacteria Urine None Seen (None Seen); Hyaline Casts Urine 0-2 /LPF (0-2); RBC Urine 0-2 /HPF (0-2); UACC Culture Trigger YES; WBC Urine 0-5 /HPF (0-5)
[2024-02-26] MEDS: ondansetron HCL 4 MG/2 ML VIAL IVPUSH (19:08)
[2024-02-26] MEDS: 0.9 % Sodium Chloride 500 ML IV (19:08)
[2024-02-26 20:10] VITALS: BP 115/69; PULSE 93; RESP 16; TEMP 36.8; O2SAT 97
[2024-02-26 23:03] VITALS: BP 114/66; PULSE 88; RESP 16; TEMP 36.9; O2SAT 96
--- NOTE | 2024-02-26 23:41 | MHC.CM.ED ---
CM met with patient and sons at bedside at the request of Kamlesh DORADO. Pt is alert and orientated x4. Very sharp mentally. Over the past several months has had decreased appetite and weakness. Medical work up negative. Pt lives alone. Independent. Was driving until 3 months ago. Uses a cane. No services. PCP is Dr. Tan. Address and insurance verified. HCP reviewed, completed and signed. Copies given. Uploaded into [facility] and [facility] [employer]). HCP #1/son Roque Ignacio ([phone]) and HCP #2/son Alberto Ignacio ([phone]). Referral to [facility] for services in the home. Gabino Nevarez is party plan salesperson at patient request. PT is pending for the am. Acute rehab referrals made. Pt is good candidate for acute rehab. Very motivated to regain strength and endurance. CM will follow for discharge planning.
[2024-02-27] VITALS (7 sets, daily range): BP systolic 111–121; BP diastolic 53–61; PULSE 92–107; RESP 16–20; TEMP 36.9–37.4; O2SAT 96–98
[2024-02-27] MEDS: Atorvastatin Calcium 20 MG TABLET PO ×2 (04:17→20:35)
[2024-02-27] MEDS: clonazePAM 0.5 MG TABLET PO (04:17)
--- NOTE | 2024-02-27 06:53 | PC.NURSE ---
0415, Pt c/o restless leg syndrome, medicated with PRN clonazepam at pt request.
[2024-02-27] MEDS: Acetaminophen 325 MG TABLET 650 MG PO ×2 (08:10→20:35)
[2024-02-27] MEDS: Metoprolol Succinate ER 25 MG TAB.ER.24H PO (08:11)
--- NOTE | 2024-02-27 09:22 | PC.NURSE ---
has been seen by PT. was ambulting with a walker in department
--- NOTE | 2024-02-27 09:36 | MHC.CM.ED ---
Addendum entered by Kimmie Mcclain 02/27/24 16:16: Pt has been accepted to [facility] and has payor auth. [place] to plan for BLS transport at 6pm. Pt and son Ramiro aware and in agreement with plan. Original Note: PT emani completed and uploaded to all 3 acute rehab centers for consideration of admission. Will await reponse
--- NOTE | 2024-02-27 11:12 | PHA.MEDREC ---
Addendum entered by Paige Pickens RPh 02/27/24 11:49: Med rec reviewed by this [facility] Original Note: Pharmacy Consult ? Medication Reconciliation Pharmacy the medication reconciliation done by nursing. Patient confirmed they are taking the Alendronate 70mg once a week on Sundays and she last took it Wednesday 02/21. She also take CBD Tinctures 1 drop under the tongue and CBD gummies 1 gummy (5mg) at home for Arthritis pain. She takes Clonazepam 0.5 when absolutely needed but states that they gave her one last night here and she slept better then she has in a while. She confirmed she is taking Tramadol 50mg once daily for pain. Patient states she has not taken her medications since Friday.
--- NOTE | 2024-02-27 13:33 | PC.NURSE ---
remains alert and oriented, ambulates independently with cane/walker with strong steady gait.
--- NOTE | 2024-02-27 16:17 | PC.NURSE ---
la [phone]
--- NOTE | 2024-02-27 16:56 | MHC.CM.ED ---
[facility] is unable to transport until 7pm. Facility aware and agreeable. Pt and family aware. RN and provider aware. Med nec/face sheet with community relations police lieutenant.
--- NOTE | 2024-02-27 18:15 | PC.NURSE ---
continues to rest quietly in room, call dewey within reach. ambulates independently with walker to bathroom with steady gait. aware of plan of care. son at bedside, watching television at this time.
--- NOTE | 2024-02-27 19:24 | PC.NURSE ---
This RN assumed pt care @ 1900 Pt ca&ox4, no signs of distress. Sitting up in bed watching tv Pt asked about 2100 meds, this RN advised she would receive them closer to that time. Pt also asking about ambulance, advised time of arrival unknown at this time. Pts son and family at bedside Plan of care ongoing.
--- NOTE | 2024-02-27 19:53 | PC.NURSE ---
Son and some of pts family no longer at bedside.
--- NOTE | 2024-02-27 20:38 | PC.NURSE ---
Pt medicated per mar Son at bedside. Plan of care ongoing.
== END 2024-02-27 21:57 | disposition skilled nursing facility (03) ==
PROVIDERS: Physician Assistant; Emergency Provider Internal Medicine; PCP Internal Medicine
DX: R62.7 Adult failure to thrive (principal); R00.0 Tachycardia, unspecified; D32.9 Benign neoplasm of meninges, unspecified; R53.1 Weakness; M54.2 Cervicalgia; M25.569 Pain in unspecified knee; R11.2 Nausea with vomiting, unspecified; R26.81 Unsteadiness on feet; R06.02 Shortness of breath; R51.9 Headache, unspecified; F17.210 Nicotine dependence, cigarettes, uncomplicated; Z79.899 Other long term (current) drug therapy; Z03.818 Encounter for observation for suspected exposure to other biological agents ruled out
CPT/HCPCS: 0241U; 70450; 71045; 74176; 80053; 81001; 82550; 83690; 83735; 84484; 85025; 85610; 85730; 87086; 93005; 96361; 96374; 97162; 97165; 99285; J2405

== ENCOUNTER 2024-03-09 13:16 | Outpatient (AMB) | payer OTHER, SELFPAY ==
--- NOTE | 2024-03-09 13:17 | MHC.OFFVIS ---
Intake Visit Reasons: Bilateral knee pain Intake Note: Leyda is a 83 year old female who presents with complaints of progressively worsening bilateral knee pains. She describes her pains as sharp in nature. Her pains have gotten worse over the last few months in spite of continued non operative treatments. She has tried Tylenol which gives her minimal relief. She has done physical therapy exercises which aggravated her pain. She wishes to hold off on surgery for as long as possible. She has had cortisone injections in the past which gave her fairly good relief. Allergies NSAIDS (Non-Steroidal Anti-Inflamma Adverse Reaction (Verified 03/09/24 13:20) Kindey Function Elevated Medication List - Last Reconciled 03/09/24 by Arnulfo Anderson MD acetaminophen ER (Tylenol Arthritis Pain) 650 mg PO Q12H alendronate 70 mg PO MORA [CBD Tincture 1 drp sublingual BEDTIME PRN] clonazepam 0.5 mg PO QID PRN metoprolol succinate ER 25 mg PO DAILY simvastatin 40 mg PO BEDTIME tramadol 50 mg PO Q12H PRN PFSH Surgical History H/O mastectomy Family History Mother Ovarian cancer Father Heart problem Paternal Grandmother Diabetes Social History Household Members: None Housing: House Alcohol intake: never Patient Tobacco Use Status: Current everyday Tobacco user Cigarettes Per Day: 8 Current occupational status: employed Current occupation: [employer] Physical Exam Const Other: Well-nourished well-developed very friendly female awake alert and oriented x3 in no acute distress Extrem Other: Bilateral lower extremity examination shows good capillary refill, no skin lesions noted, normal sensation light touch Bilateral knee examination shows minimal effusions, palpable crepitus with range of motion, pain with range of motion, no instability Office Procedures Joint Injection/Aspiration Joint Injection/Aspiration Primary Site: left knee Prep: site was prepped using aseptic technique Injected: 40 mg of, DepoMedrol and 1% plain lidocaine Procedure: The patient tolerated the procedure well Coding 80766 - Large joint Procedure code (CPT) selection complete Joint Injection/Aspiration Joint Injection/Aspiration Primary Site: right knee Prep: site was prepped using aseptic technique Injected: 40 mg of, DepoMedrol and 1% plain lidocaine Procedure: The patient tolerated the procedure well Coding 47388 - Large joint Procedure code (CPT) selection complete Results Reviewed Results Reviewed: X-rays of the patient's bilateral knee show joint space narrowing, subchondral sclerosis, no acute bony abnormalities Assessment & Plan Assessment & Plan (1) Arthritis of left knee: Code(s): M17.12 - Unilateral primary osteoarthritis, left knee Category: Medical (2) Arthritis of right knee: Code(s): M17.11 - Unilateral primary osteoarthritis, right knee Category: Medical (3) Pain in both knees: Code(s): M25.561 - Pain in right knee; M25.562 - Pain in left knee Plan Ms. Ignacio presents with bilateral knee pains due to degenerative joint disease. I had a lengthy discussion with the patient regarding the treatment options. The risks and benefits of bilateral knee cortisone injections were discussed at length with the patient. The patient wished to proceed. She tolerated the injections well. She will continue with her home exercise program. She will contact me prior to her follow-up appointment in 3 months should any questions or concerns arise. Feel free to call me at any time should questions regarding her orthopedic management arise. I spent 20 minutes in reviewing the patient's records and imaging studies, seeing the patient and documenting in the medical record. Orders: Orders AMB Joint Injection/Aspiration Today M17.12 - Unilateral primary osteoarthritis, left knee AMB Joint Injection/Aspiration Today M17.11 - Unilateral primary osteoarthritis, right knee Coding Level of Care Code Est Pt Level 3 (59577) Complex EM visit Add On G2211 Diagnoses Arthritis of left knee M17.12 Arthritis of right knee M17.11 Pain in both knees M25.561; M25.562 CPT Codes Coding - 23107 Large joint: 97947 - Large joint ([id number]) Coding - 99835 Large joint: 62223 - Large joint ([id number])
== END 2024-03-09 13:45 | disposition home or self-care (01) ==
PROVIDERS: PCP Internal Medicine; Visit Provider Orthopaedic Surgery
DX: M17.0 Bilateral primary osteoarthritis of knee (principal)
CPT/HCPCS: 20610; 99213

== ENCOUNTER → 2024-03-09 13:16 | Outpatient (BNVA) | payer OTHER, SELFPAY | PROVIDERS: PCP Internal Medicine; Visit Provider Orthopaedic Surgery | DX: M17.0 Bilateral primary osteoarthritis of knee (principal) | CPT/HCPCS: 20610; J1010 ==

== ENCOUNTER 2024-03-29 13:11 | Emergency (ER) | payer OTHER, SELFPAY ==
--- NOTE | ~2024-03-29 | XR_ITS ---
EXAMINATION: XR SACRUM AND COCCYX CLINICAL INFORMATION: Low back pain/coccygeal pain. COMPARISON: CT abdomen/pelvis 02/26/2024. TECHNIQUE: 2 views of the sacrum and 2 views of the coccyx were obtained. FINDINGS: Evaluation of the lateral view is limited due to rotation. Equivocal nondisplaced fracture of the right subcapital femoral neck. No displaced fractures. No dislocation. No significant soft tissue abnormality. XR/XR sacrum coccyx min 2V IMPRESSION: Equivocal nondisplaced fracture of the right subcapital femoral neck. Electronically signed by: Rosa Keith MD 03/29/2024 05:42 PM EDT
--- NOTE | ~2024-03-29 | XR_ITS ---
EXAMINATION: XR CHEST CLINICAL INFORMATION: Weakness COMPARISON: Chest x-ray February 26, 2024 TECHNIQUE: Frontal portable view of the chest was obtained. 1406 FINDINGS: Lungs are clear. No pulmonary vascular congestion. There is no pleural effusion. The heart size is normal. The cardiac and mediastinal contours are normal. There are calcifications of the thoracic aorta. There are multilevel degenerative changes of dorsal spine. XR/XR chest 1V IMPRESSION: Unremarkable examination. Electronically signed by: Owen Jiang MD 03/29/2024 03:44 PM EDT RP
--- NOTE | ~2024-03-29 | XR_ITS ---
EXAMINATION: XR HIP, RIGHT CLINICAL INFORMATION: Pain. COMPARISON: CT abdomen/pelvis 02/26/2024. TECHNIQUE: Two views of the right hip. FINDINGS: Equivocal nondisplaced deformity of the right subcapital femoral neck. No displaced fractures or dislocation. 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 SI joints are symmetric. Pubic symphysis is maintained. Scattered vascular calcifications, otherwise no significant soft tissue abnormality. XR/XR hip RT w PEL1V IMPRESSION: Equivocal nondisplaced deformity of the right subcapital femoral neck. Correlate for point tenderness and if indicated consider further evaluation with a noncontrast CT of the right hip. Electronically signed by: Rosa Keith MD 03/29/2024 05:44 PM EDT
--- NOTE | ~2024-03-29 | CT_ITS ---
EXAMINATION: CT CERVICAL SPINE WITHOUT CONTRAST CLINICAL INFORMATION: Status post fall with head strike one week ago. Neck pain. COMPARISON: Cervical spine x-rays of 11/07/2023 TECHNIQUE: Multidetector volumetric CT imaging of the cervical spine is acquired, without intravenous contrast administration. Postprocessing is performed at a dedicated workstation. Multiplanar reformatted images are submitted. This CT examination was performed using dose optimization techniques as appropriate, variously including the following: *Automated exposure control *Adjustment of mA and/or kV according to patient size (this includes techniques or standardized protocols for targeted exams where dose is matched to indication/reason for exam; i.e. extremities or head) *Use of iterative reconstruction technique DLP: 207 mGy-cm FINDINGS: Vertebral body heights are maintained. Mild grade 1 anterolisthesis of C3 over C4 and C4 over C5 is a stable finding. There is diffuse osteopenia. Small minimally displaced fracture is noted along the anterior cortex at C6 which is best seen on the sagittal images ([id number] images 29-34/58). There are minimally displaced fractures through the junction of the base of the spinous process and bilateral laminectomy of C5. Atlantoaxial and atlantooccipital alignments are normal. Varying degree of facet arthropathy is noted bilaterally, moderate to severe on the left compared to right. There is minimal superior and inferior endplate depressions at T1, indeterminate age. There might be superimposed small acute fracture at anterior superior margin of T1. The posterior elements are otherwise intact. No evidence of prevertebral soft tissue swelling. The airway is patent. No evidence of tight central canal stenosis. There is moderate to severe neural foraminal encroachment on the left at C3-C4 and C4-C5. Moderate neural foraminal encroachment of the right at C5-C6. No significant thyroid nodule. Visualized lung apices are unremarkable. CT/CT cervical spine wo IV con IMPRESSION: 1. Minimally displaced fractures through the junction of the base of the spinous process and bilateral lamina of C5. 2. Small minimally displaced fracture along the anterior cortex C6 vertebral body. 3. Minimal superior and inferior endplate depressions at T1, indeterminate age. There might be superimposed small acute fracture at anterior superior margin of T1. 4. Cervical spondylosis. Fleischner guidelines were followed. This critical result was discussed with Christopher DORADO at 5:07 PM on 03/29/2024 and it was ascertained that the content and urgency of the report was understood at the time of direct communication. Electronically signed by: Jeannie Johnson MD 03/29/2024 05:29 PM EDT
--- NOTE | ~2024-03-29 | CT_ITS ---
EXAMINATION: CT HEAD WITHOUT CONTRAST CLINICAL INFORMATION: Status post fall with head strike one week ago. COMPARISON: CT head 02/26/2024. TECHNIQUE: Contiguous axial imaging was performed from the skull base to vertex without intravenous administration of contrast. This CT examination was performed using dose optimization techniques as appropriate, variously including the following: *Automated exposure control *Adjustment of mA and/or kV according to patient size (this includes techniques or standardized protocols for targeted exams where dose is matched to indication/reason for exam; i.e. extremities or head) *Use of iterative reconstruction technique DLP: 683 mGy-cm. 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 There is mild mass effect over the underlying parenchyma. There is no evidence of midline shift. There is no evidence of acute intracranial hemorrhage or acute territorial edematous infarction. Higginbotham to white matter differentiation is well preserved. Ventricles and sulci are age appropriate. 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 A 1.8 x 1.9 cm extra-axial lesion with small calcifications in the anterior frontal parasagittal location is again noted representing calcifying meningioma. No evidence of acute fracture of the osseous calvarium. Bilateral temporomandibular joint alignments are maintained. Bilateral mastoid air cells and middle ear cavities are well aerated. No significant calvarial soft tissue swelling or hematoma is noted. Isolated opacification of the right anterior ethmoid air cell. Remainder of the visualized paranasal sinuses are well aerated. CT/CT head/brain wo IV con IMPRESSION: Bilateral chronic subdural hemorrhages/hygromas with mild mass effect over the underlying parenchyma. The findings appear more prominent compared to last CT. No evidence of acute intracranial/extra-axial hemorrhage. No evidence of acute fracture of the osseous calvarium. This critical result was discussed with ESTRADA Crouch at 5:07 PM on 03/29/2024 and it was ascertained that the content and urgency of the report was understood at the time of direct communication. Electronically signed by: Jeannie Johnson MD 03/29/2024 05:46 PM EDT
[2024-03-29 13:19] VITALS: BP 110/70; PULSE 115; O2SAT 95
[2024-03-29 13:25] VITALS: BP 106/69; PULSE 119; RESP 18; TEMP 37.2; O2SAT 95; BMI 22.7
[2024-03-29 13:35] VITALS: PULSE 126
--- NOTE | 2024-03-29 13:35 | PC.NURSE ---
pt is alert and oriented, skin pwd, respirations even and unlabored, pt reports falling on Friday, not sure exactly how she fell, did hit head, a very small lac to the back of the head, neck pain but also has chronic neck pain but thinks its been more aggravated since the fall, c-suresh applied by ems, left sided of the chest/breast bone area-appears slightly swollen/raises no visible bruising at this time, also state right coccyx/buttocks pain. not able to evaluate at this time do the pt being in a c-collar, pt's is sinus tach on the monitor
--- NOTE | 2024-03-29 13:39 | ECG_ITS ---
Test Reason : FALL Blood Pressure : / mmHG Vent. Rate : 124 BPM Atrial Rate : 124 BPM P-R Int : 130 ms QRS Dur : 078 ms QT Int : 306 ms P-R-T Axes : 042 019 041 degrees QTc Int : 439 ms Sinus tachycardia with Premature atrial complexes Nonspecific ST and T wave abnormality Abnormal ECG When compared with ECG of 26-FEB-2024 11:02, Premature atrial complexes are now Present Referred By: Generic ED Physician Electronically Signed By:GREY BUSTILLO
--- NOTE | 2024-03-29 14:28 | ED_ITS ---
HPI - Fall General Chief Complaint: Fall Stated Complaint: BACK AND NECK PAIN Time Seen by Provider: 03/29/24 13:34 Source: patient, family, EMS, RN notes reviewed and old records reviewed Mode of arrival: EMS History of Present Illness ED Provider: Amy Yanez PA-C HPI Narrative: 83-year-old female with a past medical history breast CA, arthritis, possible autoimmune disease after positive KARLA test, presenting to the ED via EMS complaining of worsening generalized weakness over the past week with chronic neck pain, low back/coccygeal and right hip pain s/p mechanical trip & fall on 03/22 with +head strike, denies LOC. Denies symptoms prior to fall. Was not evaluated after fall, has been ambulatory since incident with increasing difficulty due to pain/weakness. Patient lives home alone, denies using assistive devices for ambulation. Was seen and treated in our ED on 02/25 for FTT, d/c'd to [facility] & has been home 2 wks, with [employer]CHNICIAN daily for a few hours. Denies headache, CP/SOB, abdominal pain, nausea/vomiting. Denies anticoagulation Related Data Home Medications ?Medication ?Instructions ?Recorded ?Confirmed CBD Tincture 1 drp sublingual BEDTIME PRN 01/28/23 03/09/24 pain/sleep acetaminophen 650 mg 650 mg PO Q12H 01/28/23 03/09/24 tablet,extended release (Tylenol Arthritis Pain) simvastatin 40 mg tablet 40 mg PO BEDTIME 01/28/23 03/09/24 alendronate 70 mg tablet 70 mg PO MORA 02/27/24 03/09/24 clonazepam 0.5 mg tablet 0.5 mg PO QID PRN Restless Leg(S) 02/27/24 03/09/24 metoprolol succinate 25 mg 25 mg PO DAILY 02/27/24 03/09/24 tablet,extended release 24 hr Previous Rx's ?Medication ?Instructions ?Recorded tramadol 50 mg tablet 50 mg PO Q12H PRN pain #60 tabs 01/30/24 Allergies Allergy/AdvReac Type Severity Reaction Status Date / Time NSAIDS (Non-Steroidal AdvReac Kindey Verified 03/29/24 13:30 Anti-Inflamma Function Elevated Review of Systems 2 Review of Systems: Yes all other systems are reviewed and are negative Constitutional: Constitutional: Reports as per HPI Neurologic: Denies Abnormal speech present [facility] Past Medical History Attestation statement: The following information was validated with the patient. Source: old records reviewed Surgical History H/O mastectomy Family History Family History Mother Ovarian cancer Father Heart problem Paternal Grandmother Diabetes Social History Social History Household Members: None Housing: House Alcohol intake: current Alcohol intake frequency: holidays/special occasions only Patient Tobacco Use Status: Current everyday Tobacco user Cigarettes Per Day: 8 Smoked in Last 30 Days: Yes Use of substances other than those prescribed or required for medical reasons: No Advance Directives: No Advance Directives Information Provided: Yes Do you have a plan to hurt others: No Plan Current occupational status: employed Current occupation: [employer] Physical Exam 2 Vital Signs: Vital Signs: Last Vital Signs Temp 99.0 F 03/29/24 13:25 Pulse 97 03/29/24 17:50 Resp 18 03/29/24 17:50 BP 117/60 03/29/24 17:50 Pulse Ox 95 03/29/24 17:50 O2 Del Method Room Air 03/29/24 17:50 BMI result Body Mass Index 22.7 Const: General: cooperative and no acute distress O rientation/consciousness: patient oriented x3 Limitations: no limitations HEENT: Other: + small closed laceration noted to poste rior scalp with healing ecchymosis Head: Yes normal to inspection Ears: hearing grossly normal bilaterally General nose exam: Normal external nose present Face and sinus: Yes normal facial exam Mouth: Normal oral and palatal mucosa present Throat: Yes posterior oropharynx normal Eyes: General: appearance normal, both eyes and all related structures P upils: Equal, round and reactive pupils present EOM: EOMs intact bilaterally Neck: Other: C-collar in place Neck: Yes normal visual inspection and Yes no meningeal signs Resp: Effort & Inspection: normal respiratory effort and no respiratory distress Auscultation: clear to auscultation bilaterally Cardio: Rate: regular rate Heart sounds: S1 normal heart sound present and S2 normal heart sound present GI: Inspection: Yes normal to inspection Palpation (GI): Soft to palpation, nontender, no guarding and not rigid : General: Yes no CVA tenderness Back/Spine/Pelvis: Other: No midline cervical/thoracic/lumbar spinous tenderness/step-off or deformity Back: no CVA tenderness Skin: Rashes: no rashes Wounds: no wounds Neuro: Other: Strength intact throughout. No saddle anesthesia. Sensation intact to light touch. Neurovascular intact distally General: patient oriented x3, tone normal, moves all extremities, no meningeal signs, no focal motor deficits and CN's II-XI intact bilaterally C ranial nerves: Yes CN's II-XII intact bilaterally and Yes Equal, round and reactive pupils present Cognition (Neuro): normal cognition Speech: No Abnormal speech present Motor exam (neuro): 5/5 motor strength present throughout and no tremor noted Extrem: Other: Pelvis stable. Mild right hip tenderness. ROM intact without discomfort. Neurovascularly intact distally. General: Yes normal to inspection Course Course Course Narrative: -1609--mild leukocytosis 13.9. H&H with slight drop from prior. BUN chronically elevated -1630-- ED care transferred to [facility] pending remaining labs, UA, imaging, viral studies, and dispo per results. 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 This appears more prominent than compared to last head CT from a month ago. The patient also has minimally displaced fractures of the junction of the base of the spinous process and bilateral lamina of C5 as well as a small minimally displaced fracture along the anterior cortex of C6 vertebral body. Her x-ray shows a nondisplaced fracture of the right femoral neck. I evaluated the patient, she appears quite comfortable, she had remove the C-collar so this was replaced. We are attempting to find an Lockhart collar. I asked Radiology to upload the images to [facility] for [facility] review for likely trauma transfer given the significant injuries the patient has sustained. Time: 17:50 Reevaluation #2: Discussed with [facility] transfer line, the patient was accepted to the care of Dr. Brown as a 80 to ED trauma consult. Time: 18:46 Medications Administered Discontinued Medications Generic Name Dose Route Start Last Admin Trade Name Freq PRN Reason Stop Dose Admin Acetaminophen 650 mg 03/29/24 14:02 03/29/24 15:00 Acetaminophen 325 Mg Tablet PO 03/29/24 14:03 650 mg ONCE ONE Administration Medical Decision Making Medical Decision Making [facility] Narrative: 83-year-old female with a past medical history breast CA, arthritis, possible autoimmune disease after positive KARLA test, presenting to the ED via EMS complaining of worsening generalized weakness over the past week with chronic neck pain, low back/coccygeal and right hip pain s/p mechanical trip & fall on 03/22 with +head strike, denies LOC. on exam tachycardic which appears chronic for patient, NAD/nontoxic appearing, C-collar in place, A&O x3, no focal deficits, no midline spinous tenderness throughout. Concern for metabolic/infectious etiologies. Rule out ICH/fractures. Low suspicion for severe sepsis at this time Plan: EKG, labs, UA, head CT, XRs. Anticipate PT/case management if workup unremarkable Please refer to course for remaining clinical decision making, interpretation of labs/imaging results, and discussions with consultants and/or family members. Differential Diagnosis Differential Diagnoses: The differential diagnosis associated with the presentation includes As above Admission/Observation Consideration of admission/observation: Escalation of care including admission/observation considered Lab Data [facility] Lab Attestation statement: I reviewed the patient's lab results. 03/29/24 15:42 03/29/24 15:42 Labs: Lab Results 03/29/24 Range/Units 15:42 WBC 13.9 H (4.8-10.8) X10*3/uL RBC 3.92 L (4.20-5.50) X10*6/uL Hgb 11.5 L (12.0-16.0) g/dl Hct 35.9 L (37.0-47.0) % MCV 91.6 (80.0-98.0) fL MCH 29.3 (27.0-33.0) pg MCHC 32.0 (31.0-35.0) g/dl RDW 16.3 H (11.0-16.0) % Plt Count 181 (160-400) X10*3/uL MPV 11.7 (9.4-12.3) fL Immature Gran % (Auto) 0.9 H (0.0-0.4) % Neut % (Auto) 83.8 H (45-73) % Lymph % (Auto) 7.8 L (20-40) % Wake % (Auto) 7.0 (2-11) % Eos % (Auto) 0.1 (0-4) % Baso % (Auto) 0.4 (0-2) % Lymph # (Auto) 1.1 L (1.2-4.9) X10*3/uL Wake # (Auto) 1.0 (0.1-1.2) X10*3/uL Eos # (Auto) 0.0 (0.0-0.4) X10*3/uL Baso # (Auto) 0.1 (0.0-0.2) X10*3/uL Abs Immat Gran (auto) 0.12 H (0.00-0.03) X10*3/uL Absolute Neuts (auto) 11.6 H (2.0-8.3) x10*3/uL Absolute Nucleated RBC 0.000 (0.0-0.012) X10*3/uL Nucleated RBC % (auto) 0.0 (0.0-0.2) /100WBC PT 13.1 H (10.9-12.4) SEC INR 1.1 (0.9-1.1) Sodium 137 (135-145) mmol/L Potassium 4.0 (3.3-5.1) mmol/L Chloride 102 (96-108) mmol/L Carbon Dioxide 24 (22-29) mmol/L Anion Gap 15 (12-20) BUN 21 H (9-16) mg/dL Creatinine 0.88 (0.5-1.4) mg/dL Estim Creat Clear Calc 47.1 Estimated GFR > 60 Random Glucose 108 (60-115) mg/dL Calcium 9.3 (8.4-10.2) mg/dL Magnesium 1.8 (1.6-2.6) mg/dL Total Bilirubin 0.6 (0.0-1.0) mg/dL Direct Bilirubin 0.3 (0.0-0.5) mg/dL AST 20 (5-31) U/L ALT 13 (0-31) U/L Alkaline Phosphatase 142 H (39-117) U/L Troponin I High Sens 8.2 D (<3.5-17.0) ng/L Total Protein 6.2 L (6.5-8.0) g/dL Albumin 3.1 L (3.5-5.0) g/dL Influenza Type A (PCR) NEGATIVE (Negative) Influenza Type B (PCR) NEGATIVE (Negative) RSV RNA Qual (PCR) NEGATIVE (Negative) SARS-CoV-2 RNA (RT-PCR) NEGATIVE (Negative) Independent Interpretation I performed an independent interpretation of an: EKG (EKG: My interpretation sinus tachycardia with PACs rate of 124. Nonspecific T-wave abnormality no evident in inferior leads. No STEMI.) and Plain X-Ray Radiology Impression Discussion of test interpretation with radiology: I have reviewed the radiologist's reading. Independent Historian Clinical information obtained from an independent historian. History obtained from or confirmed by: EMS and Other (Son) External Record Review External record reviewed: Inpatient record, Office record, Outpatient record, Prior outpatient labs, Prior outpatient radiology, Primary care record and Outside ED record Tests considered The following testing was considered but not selected: As above Prescription Management I considered prescription management with: Pain Medication Discharge Plan Discharge Clinical Impression: Generalized weakness, Fall, Coccygeal pain, Subdural hematoma, Closed fracture of right hip, Cervical spine fracture Patient Disposition: [facility] Transfer Details: [facility] ED Prescriptions: No Action tramadol 50 mg tablet 50 mg PO Q12H PRN (Reason: pain) Qty: 60 1RF alendronate 70 mg tablet 70 mg PO MORA Rx Instructions: Take Sundays clonazepam 0.5 mg tablet 0.5 mg PO QID PRN (Reason: Restless Leg(S)) metoprolol succinate 25 mg tablet extended release 24 hr 25 mg PO DAILY simvastatin 40 mg tablet 40 mg PO BEDTIME acetaminophen [Tylenol Arthritis Pain] 650 mg tablet extended release 650 mg PO Q12H CBD Tincture 1 drp sublingual BEDTIME PRN (Reason: pain/sleep) Print Language: Mongolian
--- OUTSIDE RECORDS SUMMARY | 2024-03-29 14:34 | XMS_ITS | Patient Health Record ---
[facility] Address [address] [place] [address] Care Team Providers Care Telephone Claims Representative Name Role Phone You Tan MD Primary Care Provider Pita Anthony Unavailable [phone] ALLERGIES No Known Allergies REASON FOR REFERRAL No Information MEDICATIONS Medication SIG (Take, Route, Fr equency, Duration) Notes Start Date End Date Status Aspirin 81 MG 1 tablet Orally Once a day for 30 day(s) Active Fish Oil Active Multivitamin Active Simvastatin 40 MG 1 tablet in the even ing Orally Once a day for 30 day(s) Active SOCIAL HISTORY Tobacco Use: Social History Observation Description Date Details (start date - stop date) Current Smoker NA - NA Sex Assigned At : Social History Observation Description Sex Assigned At Unknown Tobacco Use/Smoking Question Answer Notes Are you a: current smoker Alcohol Screen Question Answer Notes Did you have a drink containing alcohol in the p ast year? No Points 0 Interpretation Negative Tobacco use other than smoking: Question Answer Notes Are you an other tobacco user? No PLAN OF TREATMENT Pending Test Test Name Order Date X ray : Foot, right 3V 10/02/2021 Insurance Providers Payer Name Payer Address Payer Phone Subscriber Number Group Number Insured Name Patient Relationship to Insured Coverage Start Date Coverage End Date [employer] ([facility]ly [facility] [address] [place] [id number] Leyda Ignacio Self - patient is the insured MEDICAL (GENERAL) HISTORY Surgical History Surgery Date(Month/Year)
[2024-03-29] MEDS: Acetaminophen 325 MG TABLET 650 MG PO (15:00)
[2024-03-29 15:47] LABS: MANUAL DIFF FLAG NO
[2024-03-29 15:56] LABS: Basophils Absolute Auto 0.1 X10*3/uL (0.0-0.2); Basophils Percent Auto 0.4 % (0-2); Eosinophils Percent Auto 0.1 % (0-4); Hematocrit 35.9 % (37.0-47.0); Hemoglobin 11.5 g/dl (12.0-16.0); Imm Gran Abs Auto 0.12 X10*3/uL (0.00-0.03); Imm Gran Pct Auto 0.9 % (0.0-0.4); Lymphocytes Absolute Auto 1.1 X10*3/uL (1.2-4.9); Lymphocytes Percent Auto 7.8 % (20-40); Mean Corpuscular Hemoglobin 29.3 pg (27.0-33.0); Mean Corpuscular Volume 91.6 fL (80.0-98.0); Mean Platelet Volume 11.7 fL (9.4-12.3); Neutrophils Absolute Auto 11.6 x10*3/uL (2.0-8.3); Neutrophils Percent Auto 83.8 % (45-73); Platelet Count 181 X10*3/uL (160-400); Red Blood Count 3.92 X10*6/uL (4.20-5.50); Red Cell Distribution Width 16.3 % (11.0-16.0); White Blood Count 13.9 X10*3/uL (4.8-10.8)
[2024-03-29 15:57] LABS: INTERNATIONAL NORM RATIO 1.1 (0.9-1.1); Prothrombin Time 13.1 SEC (10.9-12.4)
[2024-03-29 16:05] LABS: Alanine Aminotransferase 13 U/L (0-31); Albumin Level 3.1 g/dL (3.5-5.0); Alkaline Phosphatase 142 U/L (39-117); Anion Gap 15 (12-20); Aspartate Amino Transferase 20 U/L (5-31); Bilirubin Direct 0.3 mg/dL (0.0-0.5); Bilirubin Total 0.6 mg/dL (0.0-1.0); Blood Urea Nitrogen 21 mg/dL (9-16); Calcium 9.3 mg/dL (8.4-10.2); Carbon Dioxide 24 mmol/L (22-29); Chloride 102 mmol/L (96-108); Creatinine Clr Calc Pharmacy 47.1; Estimated Glomerular Filt Rate > 60; Glucose Random 108 mg/dL (60-115); Magnesium 1.8 mg/dL (1.6-2.6); Sodium 137 mmol/L (135-145); Total Protein 6.2 g/dL (6.5-8.0)
[2024-03-29 16:13] LABS: Troponin-I High Sensitivity 8.2 ng/L (<3.5-17.0)
[2024-03-29 16:28] LABS: Influenza A PCR NEGATIVE (Negative); Influenza B PCR NEGATIVE (Negative); Resp Syncy Virus RNA Qual PCR NEGATIVE (Negative); SARS COV2 PCR INHOUSE NEGATIVE (Negative)
--- NOTE | 2024-03-29 17:30 | PC.NURSE ---
pt was found with her c-collar removed, collar replaced, vs stable at this time, pt is reporting neck pain at 4/10, sinus tach on the monitor at this time 101, son at bedside
[2024-03-29 17:50] VITALS: BP 117/60; PULSE 97; RESP 18; O2SAT 95
--- NOTE | 2024-03-29 19:46 | PC.NURSE ---
son at bedside, drinking an ensure at this time
--- NOTE | 2024-03-29 20:09 | PC.NURSE ---
reported called to [facility]
[2024-03-29 20:15] VITALS: BP 104/56; PULSE 99; RESP 16; TEMP 36.7; O2SAT 95
[2024-03-29 21:26] VITALS: BP 104/56; PULSE 99; RESP 16; TEMP 36.7; O2SAT 95
--- NOTE | 2024-03-30 09:09 | MHC.CM.ED ---
Received consult for assessment of d/c needs: upon review, it was noted pt was transferred to [facility] for further care.
== END 2024-03-29 21:33 | disposition short-term general hospital (02) ==
PROVIDERS: Physician Assistant; Emergency Provider Emergency Medicine; PCP Internal Medicine
DX: S72.001A Fracture of unspecified part of neck of right femur, initial encounter for closed fracture (principal); S06.5XAA Traumatic subdural hemorrhage with loss of consciousness status unknown, initial encounter; S12.9XXA Fracture of neck, unspecified, initial encounter; M54.2 Cervicalgia; R51.9 Headache, unspecified; M25.551 Pain in right hip; R00.0 Tachycardia, unspecified; R79.89 Other specified abnormal findings of blood chemistry; R26.2 Difficulty in walking, not elsewhere classified; F17.210 Nicotine dependence, cigarettes, uncomplicated; W19.XXXA Unspecified fall, initial encounter; Y93.89 Activity, other specified; Y92.89 Other specified places as the place of occurrence of the external cause; Y99.8 Other external cause status; Z79.899 Other long term (current) drug therapy; Z03.818 Encounter for observation for suspected exposure to other biological agents ruled out
CPT/HCPCS: 0241U; 70450; 71045; 72125; 72220; 73502; 80048; 80076; 83735; 84484; 85025; 85610; 93005; 99285

== ENCOUNTER → 2024-03-29 13:39 | Outpatient (BNV) | payer OTHER, SELFPAY | PROVIDERS: Emergency Provider Emergency Medicine; PCP Internal Medicine; Visit Provider Internal Medicine | DX: R00.0 Tachycardia, unspecified (principal); R94.31 Abnormal electrocardiogram [ECG] [EKG] | CPT/HCPCS: 93010 ==

== ENCOUNTER 2024-04-09 05:26 | Outpatient (REF) | payer OTHER, SELFPAY ==
[2024-04-09 05:34] LABS: MANUAL DIFF FLAG NO
[2024-04-09 06:07] LABS: Basophils Absolute Auto 0.1 X10*3/uL (0.0-0.2); Basophils Percent Auto 0.6 % (0-2); Eosinophils Absolute Auto 0.1 X10*3/uL (0.0-0.4); Eosinophils Percent Auto 1.3 % (0-4); Hematocrit 32.7 % (37.0-47.0); Hemoglobin 10.6 g/dl (12.0-16.0); Imm Gran Pct Auto 1.1 % (0.0-0.4); Lymphocytes Absolute Auto 1.5 X10*3/uL (1.2-4.9); Lymphocytes Percent Auto 16.4 % (20-40); Mean Corpuscular HGB Conc 32.4 g/dl (31.0-35.0); Mean Corpuscular Hemoglobin 29.7 pg (27.0-33.0); Mean Corpuscular Volume 91.6 fL (80.0-98.0); Mean Platelet Volume 11.5 fL (9.4-12.3); Monocytes Percent Auto 10.4 % (2-11); Neutrophils Absolute Auto 6.5 x10*3/uL (2.0-8.3); Neutrophils Percent Auto 70.2 % (45-73); Platelet Count 217 X10*3/uL (160-400); Red Blood Count 3.57 X10*6/uL (4.20-5.50); Red Cell Distribution Width 16.3 % (11.0-16.0); White Blood Count 9.3 X10*3/uL (4.8-10.8)
[2024-04-09 06:20] LABS: Alanine Aminotransferase 23 U/L (0-31); Albumin Level 2.7 g/dL (3.5-5.0); Alkaline Phosphatase 234 U/L (39-117); Anion Gap 14 (12-20); Aspartate Amino Transferase 38 U/L (5-31); Blood Urea Nitrogen 17 mg/dL (9-16); Carbon Dioxide 25 mmol/L (22-29); Chloride 103 mmol/L (96-108); Estimated Glomerular Filt Rate > 60; Glucose Random 87 mg/dL (60-115); Potassium 3.9 mmol/L (3.3-5.1); Sodium 138 mmol/L (135-145); Total Protein 5.7 g/dL (6.5-8.0)
[2024-04-09 06:29] LABS: Bilirubin Total 0.5 mg/dL (0.0-1.0)
== END 2024-04-09 05:27 | disposition home or self-care (01) ==
LOC: HO.MMNH2L 05:26
PROVIDERS: Visit Provider Student in an Organized Health Care Education/Training Program
DX: R63.0 Anorexia (principal); G93.9 Disorder of brain, unspecified; R16.0 Hepatomegaly, not elsewhere classified
CPT/HCPCS: 36415; 80053; 85025

== ENCOUNTER 2024-04-12 06:18 | Outpatient (REF) | payer OTHER, SELFPAY ==
[2024-04-12 06:04] LABS: MANUAL DIFF FLAG NO
[2024-04-12 06:58] LABS: Basophils Absolute Auto 0.1 X10*3/uL (0.0-0.2); Basophils Percent Auto 0.6 % (0-2); Eosinophils Absolute Auto 0.1 X10*3/uL (0.0-0.4); Eosinophils Percent Auto 0.6 % (0-4); Hematocrit 34.7 % (37.0-47.0); Hemoglobin 10.7 g/dl (12.0-16.0); Lymphocytes Absolute Auto 1.2 X10*3/uL (1.2-4.9); Lymphocytes Percent Auto 12.6 % (20-40); Mean Corpuscular HGB Conc 30.8 g/dl (31.0-35.0); Mean Platelet Volume 11.5 fL (9.4-12.3); Monocytes Percent Auto 10.3 % (2-11); Neutrophils Absolute Auto 7.4 x10*3/uL (2.0-8.3); Neutrophils Percent Auto 74.9 % (45-73); Platelet Count 219 X10*3/uL (160-400); Red Blood Count 3.69 X10*6/uL (4.20-5.50); Red Cell Distribution Width 16.7 % (11.0-16.0); White Blood Count 9.8 X10*3/uL (4.8-10.8)
[2024-04-12 07:14] LABS: Anion Gap 13 (12-20); Blood Urea Nitrogen 14 mg/dL (9-16); Calcium 8.6 mg/dL (8.4-10.2); Carbon Dioxide 22 mmol/L (22-29); Chloride 104 mmol/L (96-108); Estimated Glomerular Filt Rate > 60; Glucose Random 89 mg/dL (60-115); Sodium 135 mmol/L (135-145)
== END 2024-04-12 06:19 | disposition home or self-care (01) ==
LOC: HO.MMNH2L 06:18
PROVIDERS: Visit Provider Student in an Organized Health Care Education/Training Program
DX: R63.0 Anorexia (principal); G93.9 Disorder of brain, unspecified; R16.0 Hepatomegaly, not elsewhere classified
CPT/HCPCS: 36415; 80048; 85025

== ENCOUNTER 2024-04-19 06:33 | Outpatient (REF) | payer OTHER, SELFPAY ==
[2024-04-19 06:02] LABS: MANUAL DIFF FLAG NO
[2024-04-19 07:14] LABS: Basophils Absolute Auto 0.1 X10*3/uL (0.0-0.2); Basophils Percent Auto 0.5 % (0-2); Eosinophils Absolute Auto 0.1 X10*3/uL (0.0-0.4); Eosinophils Percent Auto 0.7 % (0-4); Hematocrit 36.7 % (37.0-47.0); Hemoglobin 11.2 g/dl (12.0-16.0); Imm Gran Abs Auto 0.06 X10*3/uL (0.00-0.03); Imm Gran Pct Auto 0.6 % (0.0-0.4); Lymphocytes Absolute Auto 1.2 X10*3/uL (1.2-4.9); Lymphocytes Percent Auto 12.4 % (20-40); Mean Corpuscular HGB Conc 30.5 g/dl (31.0-35.0); Mean Corpuscular Hemoglobin 28.8 pg (27.0-33.0); Mean Corpuscular Volume 94.3 fL (80.0-98.0); Mean Platelet Volume 11.8 fL (9.4-12.3); Monocytes Absolute Auto 0.9 X10*3/uL (0.1-1.2); Monocytes Percent Auto 9.5 % (2-11); Neutrophils Absolute Auto 7.1 x10*3/uL (2.0-8.3); Neutrophils Percent Auto 76.3 % (45-73); Platelet Count 154 X10*3/uL (160-400); Red Blood Count 3.89 X10*6/uL (4.20-5.50); Red Cell Distribution Width 16.4 % (11.0-16.0); White Blood Count 9.4 X10*3/uL (4.8-10.8)
[2024-04-19 08:11] LABS: Anion Gap 13 (12-20); Blood Urea Nitrogen 19 mg/dL (9-16); Carbon Dioxide 25 mmol/L (22-29); Chloride 106 mmol/L (96-108); Estimated Glomerular Filt Rate > 60; Glucose Random 84 mg/dL (60-115); Potassium 3.8 mmol/L (3.3-5.1); Sodium 140 mmol/L (135-145)
== END 2024-04-19 06:34 | disposition home or self-care (01) ==
LOC: HO.MMNH2L 06:33
PROVIDERS: Visit Provider Student in an Organized Health Care Education/Training Program
DX: R63.0 Anorexia (principal); G93.9 Disorder of brain, unspecified; R16.0 Hepatomegaly, not elsewhere classified
CPT/HCPCS: 36415; 80048; 85025

== ENCOUNTER 2024-04-26 06:09 | Outpatient (REF) | payer OTHER, SELFPAY ==
[2024-04-26 05:50] LABS: MANUAL DIFF FLAG NO
[2024-04-26 06:38] LABS: Basophils Absolute Auto 0.1 X10*3/uL (0.0-0.2); Basophils Percent Auto 0.5 % (0-2); Eosinophils Absolute Auto 0.1 X10*3/uL (0.0-0.4); Eosinophils Percent Auto 0.6 % (0-4); Hematocrit 32.9 % (37.0-47.0); Hemoglobin 10.1 g/dl (12.0-16.0); Lymphocytes Absolute Auto 1.2 X10*3/uL (1.2-4.9); Mean Corpuscular HGB Conc 30.7 g/dl (31.0-35.0); Mean Corpuscular Hemoglobin 28.4 pg (27.0-33.0); Mean Corpuscular Volume 92.4 fL (80.0-98.0); Mean Platelet Volume 11.8 fL (9.4-12.3); Monocytes Absolute Auto 1.1 X10*3/uL (0.1-1.2); Monocytes Percent Auto 11.3 % (2-11); Neutrophils Absolute Auto 7.5 x10*3/uL (2.0-8.3); Neutrophils Percent Auto 74.6 % (45-73); Platelet Count 188 X10*3/uL (160-400); Red Blood Count 3.56 X10*6/uL (4.20-5.50); Red Cell Distribution Width 16.3 % (11.0-16.0); White Blood Count 10.1 X10*3/uL (4.8-10.8)
[2024-04-26 07:02] LABS: Anion Gap 14 (12-20); Blood Urea Nitrogen 17 mg/dL (9-16); Calcium 8.2 mg/dL (8.4-10.2); Carbon Dioxide 21 mmol/L (22-29); Chloride 107 mmol/L (96-108); Estimated Glomerular Filt Rate > 60; Glucose Random 96 mg/dL (60-115); Potassium 3.8 mmol/L (3.3-5.1); Sodium 138 mmol/L (135-145)
== END 2024-04-26 06:10 | disposition home or self-care (01) ==
LOC: HO.MMNH2L 06:09
DX: E44.0 Moderate protein-calorie malnutrition (principal); D32.9 Benign neoplasm of meninges, unspecified; M19.90 Unspecified osteoarthritis, unspecified site
CPT/HCPCS: 36415; 80048; 85025

== ENCOUNTER 2024-04-26 12:41 | Outpatient (AMB) | payer OTHER, SELFPAY ==
--- NOTE | 2024-04-26 12:45 | A.OFFVIS_ITS ---
Vital Signs 04/26/24 12:51 Height 5 ft 7 in Weight 130 lb BMI 20.4 BP 120/66 Blood Pressure Location Lt brachial Position Sitting Pulse 109 H Pulse Source Pulse Oximeter Pulse Oximetry (%) 109 H Oxygen Delivery Method Room Air Intake Visit Reasons: abnormal lab/joint pain/Dr. Tan referrals/CM Intake Note: Patient presents today with abnormal labs, elevated sed rate, CRP, she was externally referred by Dr. Tan. Accompanied by: Son Allergies NSAIDS (Non-Steroidal Anti-Inflamma Adverse Reaction (Verified 04/26/24 12:52) Kindey Function Elevated Medication List - Last Reconciled 04/26/24 by Addie Escamilla MD acetaminophen ER (Tylenol Arthritis Pain) 650 mg PO Q12H alendronate 70 mg PO MORA [CBD Tincture 1 drp sublingual BEDTIME PRN] clonazepam 0.5 mg PO QID PRN metoprolol succinate ER 25 mg PO DAILY simvastatin 40 mg PO BEDTIME tramadol 50 mg PO Q12H PRN HPI Comments Details: Patient is an 83-year-old female with osteoporosis on alendronate for several years, hyperlipidemia, hypertension who presents for evaluation of proximal muscle weakness and stiffness Patient is with son. Son states that in October of this year patient was still working and living on her own and performing her own ADLs. Since October she has had a slow decline in her health status including weakness especially involving her proximal muscles, weight loss, decreased appetite and pain to her proximal muscles. Patient reports pain and stiffness involving her hips as well as her shoulders and neck. No temporal headaches or jaw claudication. No difficulty swallowing. No rashes. About 1 month ago patient was walking down the stairs and she fell fracturing her C-spine and her right hip. She also had fractures to her ribs. She is currently living in a rehab facility [facility] Medical History (Updated 04/26/24 @ 13:41 by Addie Escamilla MD) Osteoporosis with pathological fracture of cervical vertebra Polymyalgia rheumatica Surgical History H/O mastectomy Family History Mother Ovarian cancer Father Heart problem Paternal Grandmother Diabetes Social History Household Members: None Housing: House Alcohol intake: current Alcohol intake frequency: holidays/special occasions only Patient Tobacco Use Status: Current everyday Tobacco user Cigarettes Per Day: 8 Current occupational status: employed Current occupation: [employer] Review of Systems Const Details: Review of Systems Constitutional: Denies fever, chills, weight loss ENT: Denies vision changes, eye pain or eye redness, dental caries, dry mouth GI: Denies nausea, vomiting, diarrhea, abdominal pain, change in BM Pulm: Denies SOB, CORCORAN, hemoptysis, wheezing Cards: Denies chest pain, palpitations Skin: Denies Raynaud's, rash, nail changes, photosensitivity, AQUATIC ECOLOGIST: Denies headaches, weakness, paresthesias, recurrent falls MSK: as per HPI All other systems reviewed and are unremarkable except noted above Physical Exam Vital Signs: Last Vital Signs Pulse 109 H 04/26/24 12:51 BP 120/66 04/26/24 12:51 Pulse Ox 109 H 04/26/24 12:51 Oxygen Delivery Method Room Air 04/26/24 12:51 BMI result Body Mass Index 20.4 Physical Examination CONSTITUITIONAL Patient alert and cooperative. Bitemporal wasting. Patient is uncomfortable. Seen in C-spine collar. HEENT Conjunctiva and sclera clear. ?Pupils equal round and reactive to light. ?No lymphadenopathy. ?\ CHEST/RESPIRATORY SYSTEM Normal respiratory effort and able to speak in complete sentences. ?Clear to auscultation bilaterally. ?No crackles, rales, rhonchi, wheezes heard. Unable to take a deep breath. CARDIAC SYSTEM Regular rate and rhythm. ?S1 and S2 heard no murmurs. 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 ?No deformities noted. ?No synovitis noted to the MCPs, PIPs or DIPs. ?No tenderness to palpation of these joints. Wrists: ?Full range of motion at the wrists without pain. ?No tenderness to palpation or synovitis noted to the wrists. Elbows: Full range of motion without pain. No tenderness, weakness, swelling, increased warmth or erythema. Shoulders: Full range of motion without pain. No tenderness, weakness, swelling, increased warmth or erythema. Tenderness to palpation of the shoulders and neck. Hips: Patient unable to engage hip flexors against gravity. Hip bursa: No tenderness to palpation Knees: ?Mild swelling noted to the right knee without warmth or tenderness to palpation. Mild swelling also noted to the left knee without warmth or tenderness to palpation. SKIN Skin intact without rashes. Results Reviewed Results Reviewed: ESR and CRP markedly elevated. Laboratory Tests 02/26/24 04/26/24 11:18 05:00 WBC 10.1 RBC 3.56 L Hgb 10.1 L Hct 32.9 L Plt Count 188 Sodium 138 Potassium 3.8 Chloride 107 Carbon Dioxide 21 L BUN 17 H Creatinine 0.85 Calcium 8.2 L D Total Creatine Kinase 33 Hip XR 03/2024 FINDINGS: Equivocal nondisplaced deformity of the right subcapital femoral neck. No displaced fractures or dislocation. 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 SI joints are symmetric. Pubic symphysis is maintained. Scattered vascular calcifications, otherwise no significant soft tissue abnormality. C Spine CT 03/2024 IMPRESSION: 1. Minimally displaced fractures through the junction of the base of the spinous process and bilateral lamina of C5. 2. Small minimally displaced fracture along the anterior cortex C6 vertebral body. 3. Minimal superior and inferior endplate depressions at T1, indeterminate age. There might be superimposed small acute fracture at anterior superior margin of T1. 4. Cervical spondylosis. Assessment & Plan Assessment & Plan (1) Polymyalgia rheumatica: Code(s): M35.3 - Polymyalgia rheumatica Category: Medical Plan: #PMR Patient with weight loss patient with weight loss, shoulder and hip girdle weakness/stiffness with elevated ESR and CRP is consistent with polymyalgia rheumatica. We will start prednisone 20 mg daily and follow up in 4 weeks. Need labs 2 days prior to visit. (2) Osteoporosis with pathological fracture of cervical vertebra: Code(s): M80.08XA - Age-related osteoporosis with current pathological fracture, vertebra(e), initial encounter for fracture Category: Medical Plan: #Osteoporosis Patient with osteoporosis and pathological fractures to her C-spine and hip. We will stop alendronate. Per off placed for Evenity. DEXA at next visit (3) Hip fracture due to osteoporosis: Code(s): M80.059A - Age-related osteoporosis with current pathological fracture, unspecified femur, initial encounter for fracture Qualifiers: Encounter type: initial encounter Laterality: right Qualified Code(s): M80.051A - Age-related osteoporosis with current pathological fracture, right femur, initial encounter for fracture Plan: #Osteoporosis Patient with osteoporosis and pathological fractures to her C-spine and hip. We will stop alendronate. Per off placed for Evenity. DEXA at next visit Plan I spent 60 minutes reviewing the record and labs, seeing the patient, discussing the treatment plan and documenting in the medical record ? Orders: Orders Comprehensive Met. Panel 4 Weeks M35.3 - Polymyalgia rheumatica, M80.08XA - Age-related osteoporosis with current pathological fracture, vertebra(e), initial encounter for fracture Erythrocyte Sedimentation Rate 4 Weeks M35.3 - Polymyalgia rheumatica, M80.08XA - Age-related osteoporosis with current pathological fracture, vertebra(e), initial encounter for fracture Vitamin D 25-OH (D2 and D3) 4 Weeks M35.3 - Polymyalgia rheumatica, M80.08XA - Age-related osteoporosis with current pathological fracture, vertebra(e), initial encounter for fracture Immunofixation Pnl, Serum 4 Weeks M35.3 - Polymyalgia rheumatica, M80.08XA - Age-related osteoporosis with current pathological fracture, vertebra(e), initial encounter for fracture Complete Blood Count Auto Diff 4 Weeks M35.3 - Polymyalgia rheumatica, M80.08XA - Age-related osteoporosis with current pathological fracture, vertebra(e), initial encounter for fracture C Reactive Protein 4 Weeks M35.3 - Polymyalgia rheumatica, M80.08XA - Age- related osteoporosis with current pathological fracture, vertebra(e), initial encounter for fracture Protein Electrophoresis, Serum 4 Weeks M35.3 - Polymyalgia rheumatica, M80.08XA - Age-related osteoporosis with current pathological fracture, vertebra(e), initial encounter for fracture Medications: New prednisone 15 mg (3 x 5 mg) PO DAILY 90 days 270 tabs 1RF M35.3 - Polymyalgia rheumatica prednisone 20 mg (4 x 5 mg) PO DAILY 360 tabs 1RF 90 days M35.3 - Polymyalgia rheumatica romosozumab-aqqg (Evenity) 210 mg (2.34 mL) subcut .every month 2.34 mL 3RF M80.059A - Age-related osteoporosis with current pathological fracture, unspecified femur, initial encounter for fracture, M80.08XA - Age-related osteoporosis with current pathological fracture, vertebra(e), initial encounter for fracture calcium carbonate-vitamin D3 600 mg-25 mcg (1,000 unit) 1 cap PO .twice a day 180 caps 0RF 90 days M80.08XA - Age-related osteoporosis with current pathological fracture, vertebra(e), initial encounter for fracture oxycodone Partial Fill upon patient request. 5 mg PO BID PRN 90 tabs 0RF pain M80.059A - Age-related osteoporosis with current pathological fracture, unspecified femur, initial encounter for fracture, M80.08XA - Age-related osteoporosis with current pathological fracture, vertebra(e), initial encounter for fracture Discontinued tramadol Discontinued Reason: Doctor's Order 50 mg PO Q12H PRN 60 tabs 1RF pain Coding Level of Care Code New Pt Level 5 (00335) Complex EM visit Add On [id number] Diagnoses Polymyalgia rheumatica M35.3 Osteoporosis with pathological fracture of cervical vertebra M80.08XA Fracture of right hip due to osteoporosis, initial encounter M80.051A Encounter type: initial encounter Laterality: right
[2024-04-26 12:51] VITALS: BP 120/66; PULSE 109; O2SAT 109; BMI 20.4
== END 2024-04-26 13:57 | disposition home or self-care (01) ==
PROVIDERS: PCP Internal Medicine; Visit Provider Student in an Organized Health Care Education/Training Program
DX: M35.3 Polymyalgia rheumatica (principal); M80.08XA Age-related osteoporosis with current pathological fracture, vertebra(e), initial encounter for fracture; M80.051A Age-related osteoporosis with current pathological fracture, right femur, initial encounter for fracture
CPT/HCPCS: 99205